=== PATIENT | male | born 1995 | race Caucasian/White ===

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

== ENCOUNTER 2022-12-01 12:48 | Inpatient (IN) ==
--- NOTE | 2022-12-01 13:50 | Emergency Department Note ---
Impression & Plan Asthma exacerbation, Flu-like symptoms, Effusion, pericardium, Pleural effusion ED Provider Note NAME: ELDA CARRILLO AGE: 27 SEX: M : 1995 ARRIVES VIA: Walk-In INFORMANT: Patient ED PROVIDER(S): Rd Weaver DO CHIEF COMPLAINT: shortness of breath HPI: Patient is a 27-year-old male who presents to the ER for cough, congestion, and shortness of breath. Does have a past medical history of asthma. Symptoms started last Wednesday. Have been gradually getting worse. Admits to fevers 102. Seen and evaluated by PCP who reviewed the chest x-ray and thought there was a infiltrate and sent him over here for a D-dimer as the patient was tachycardic and tachypneic. Patient denies any belly pain, nausea, vomiting, or diarrhea. No dysuria, urgency, or frequency. No other exacerbating or remitting factors. ADDITIONAL HISTORY OBTAINED: Per HPI Chronic Medical/Social Conditions Affecting Care: Per HPI PAST MEDICAL HISTORY:See Below PAST SURGICAL HISTORY:See Below FAMILY HISTORY:See Below SOCIAL HISTORY:See Below HOME MEDICATIONS:See Below ALLERGIES:See Below VITALS:See Below PHYSICAL EXAMINATION: GENERAL: Sitting up in bed, alert, disheveled, tachypneic EYE EXAM: normal conjunctiva. PERRL and EOM's grossly intact. OROPHARYNX: Dry mucous membranes NECK: supple, no nuchal rigidity, no adenopathy, non-tender LUNGS: Mild wheezing bilaterally. Normal chest wall mechanics HEART: Tachycardic, S1 normal and S2 normal ABDOMEN: abdomen soft, non-tender, normo-active bowel sounds, no masses, no rebound or guarding. UPPER EXTREMITIES: upper extremities are grossly normal. LOWER EXTREMITIES: No pitting edema. Calves are equal bilateral NEURO EXAM: Normal sensorium, cranial nerves II-XII grossly intact, normal speech, no gross weakness of arms, no gross weakness of legs. MEDICAL DECISION MAKING: Patient is a 27-year-old male who presents ER referred by PCP with a past medical history of asthma on antibiotics and steroids. IV was established blood work is obtained. Labs show no significant leukocytosis or anemia. INR unremarkable. BMP with mild hypokalemia 3.2. LFTs bilirubin was unremarkable. Troponin negative. Lipase negative. Viral panel negative. PCP did call in and I did speak with them. They noted that the patient had infiltrate on chest x- ray was tachycardic tachypneic and was coming in via private vehicle. After obtaining chest x-ray there is no infiltrate and patient was sent emergently to CAT scan for possible PE. CT did show pericardial effusion and pleural effus ions but no PEs. Patient was given neb treatments, 2 L of IV fluids as well as IV steroids. He was updated bedside. Heart rate trended down from the 150s to 140s but still remained persistently elevated. His respiratory rate was improved. He was admitted for further work-up. External Records Reviewed: Reviewed PCPs note with recent shortness of breath on steroids and antibiotics getting worse Consults/Care Managements Discussions: Per [facility] Triage Nursing notes reviewed. Limited review of prior medical records performed Vital Signs: reviewed and remarkable for tachycardic Differential diagnosis: Differential diagnoses includes but is not limited to pneumonia, bronchitis, COPD/Asthma exacerbation, pneumothorax, pulmonary embolism, congestive heart failure, acute coronary syndrome ER treatment provided: See below Diagnostics interpreted by me include EKG and cardiac monitoring as listed below: -Cardiac Monitoring: An order was placed for continuous cardiac monitoring. The monitor shows a rate of 145 with sinus rhythm. -ECG: Sinus tachycardia rate of 137 Normal axis No PVCs QTc 456 -Laboratory studies:Interpreted by me as stated above in MDM and shown below. Imaging studies: Xrays: As interpreted by me: Portable AP upright 1 view of the chest shows no focal infiltrate CTs show: CT angio chest as described above Procedures:none Critical Care: I have personally spent 31 minutes of critical care time in the direct management of this patient. This includes bedside care, interpretation of diagnostic studies, and testing, discussion with consultants, patient, and family members, and other required patient management activities. This 31 minutes is in excess of all separately billable procedures. Past Med/Surg History Medical History Asthma Surgical History S/P wisdom tooth extraction Family History Mother Colorectal cancer COPD (chronic obstructive pulmonary disease) Heart disease Father Diabetes Hypertension Denies family history of Ovarian cancer Prostate cancer Myocardial infarction Breast cancer Social History Smoking Status: Never smoker Second Hand Exposure: No; Do You Dip or Chew Tobacco: No; Hx Alcohol Use: No Hx Substance Use: No Preferred Language: Luxembourgish Communication Ability: Effective Visual Impairment: No Limitations Hearing Ability: Normal Lens Polisher Hand Required: No Beliefs That Will Affect Care: None marital status: Single Current Living Situation: Family current occupational status: employed current occupation: APPLICATION ARCHITECT MANAGER Feels Safe at Home: Yes Childhood Exposure to Second-Hand Smoke: Yes Diet: regular Dental Care, Regularly: Yes Physical Activity Frequency: Does not Exercise Seatbelt Use: always Sunscreen Use: Yes Do you think of yourself as: lesbian/dimas/homosexual Sexual Activity: has been sexually active within the last 12 months Gender Identity: Male Assistive Devices: Glasses Allergies Allergies Allergy/AdvReac Type Severity Reaction Status Date / Time pollen extracts Allergy Intermediate ITCHY Verified 12/01/22 15:12 EYES, SNEEZING, CONGESTION Home Meds Home Medications Medication Instructions Recorded Confirmed albuterol sulfate 90 mcg/actuation 2 puff inhalation Q4 PRN shortness 12/01/22 12/01/22 aerosol inhaler (Ventolin HFA) of breath or wheezing bupropion HCl 150 mg 24 hr tablet, 150 mg PO QAM 12/01/22 12/01/22 extended release fluticasone propionate 50 2 spray intranasal QAM 12/01/22 12/01/22 mcg/actuation nasal spray,suspension Previous Rx's Medication Instructions Recorded cetirizine 10 mg tablet 10 mg PO DAILY PRN allergy 08/19/21 symptoms #90 tabs amoxicillin 875 mg-potassium 1 tab PO BID #20 tabs 11/29/22 clavulanate 125 mg tablet Results & Data (ED) Vital Signs Vital Signs - 24 hr 12/01/22 13:28 12/01/22 13:43 12/01/22 13:47 Temperature 36.5 C Temperature Source Temporal Artery Scan Pulse Rate 150 H 147 H Pulse Rate [Apical] Pulse Rhythm [Apical] Pulse Strength [Apical] Respiratory Rate 20 Respiratory Effort / Characteristics Non-Labored Spontaneous Respiratory Depth Normal Respiratory Pattern Blood Pressure 150/93 H Blood Pressure [Left Arm] Blood Pressure Mean 112 Blood Pressure Mean [Left Arm] Blood Pressure Position [Left Arm] Pulse Oximetry 96 97 Oxygen Delivery Method Room Air Room Air Sepsis Recent Fever Within 48 Hours No Sepsis New/Unexplained Change in Mental Status No Sepsis Action Taken by Nursing No Action Required 12/01/22 13:37 12/01/22 13:50 12/01/22 14:19 Temperature Temperature Source Pulse Rate Pulse Rate [Apical] 145 H 141 H Pulse Rhythm [Apical] Regular Pulse Strength [Apical] Bounding Respiratory Rate 22 22 Respiratory Effort / Characteristics Non-Labored Spontaneous Non-Labored Spontaneous Respiratory Depth Normal Normal Respiratory Pattern Regular Blood Pressure Blood Pressure [Left Arm] 156/111 H 137/96 Blood Pressure Mean Blood Pressure Mean [Left Arm] 126 109 Blood Pressure Position [Left Arm] Semi-fowlers Pulse Oximetry 97 95 Oxygen Delivery Method Room Air Room Air Room Air Sepsis Recent Fever Within 48 Hours Sepsis New/Unexplained Change in Mental Status Sepsis Action Taken by Nursing 12/01/22 14:56 12/01/22 15:02 12/01/22 15:17 Temperature Temperature Source Pulse Rate Pulse Rate [Apical] 149 H 156 H Pulse Rhythm [Apical] Pulse Strength [Apical] Respiratory Rate 22 22 Respiratory Effort / Characteristics Non-Labored Spontaneous Non-Labored Spontaneous Respiratory Depth Normal Normal Respiratory Pattern Regular Blood Pressure Blood Pressure [Left Arm] 153/92 H 142/97 H Blood Pressure Mean Blood Pressure Mean [Left Arm] 112 112 Blood Pressure Position [Left Arm] Pulse Oximetry 98 96 Oxygen Delivery Method Nebulizer Room Air Sepsis Recent Fever Within 48 Hours Sepsis New/Unexplained Change in Mental Status Sepsis Action Taken by Nursing 12/01/22 15:43 12/01/22 15:52 12/01/22 16:00 Temperature 36.9 C Temperature Source Oral Pulse Rate Pulse Rate [Apical] 145 H 143 H 143 H Pulse Rhythm [Apical] Pulse Strength [Apical] Respiratory Rate 22 21 19 Respiratory Effort / Characteristics Non-Labored Respiratory Depth Normal Respiratory Pattern Blood Pressure Blood Pressure [Left Arm] 148/98 H 148/98 H 144/105 H Blood Pressure Mean Blood Pressure Mean [Left Arm] 114 114 118 Blood Pressure Position [Left Arm] Pulse Oximetry 97 98 97 Oxygen Delivery Method Room Air Room Air Room Air Sepsis Recent Fever Within 48 Hours Sepsis New/Unexplained Change in Mental Status Sepsis Action Taken by Nursing Laboratory Data 12/01/22 13:45 12/01/22 13:45 Lab Results 12/01/22 12/01/22 12/01/22 Range/Units 13:45 13:45 13:45 WBC 8.31 (4.8-10.8) K/ul RBC 5.24 (4.70-6.10) M/uL Hgb 14.6 (14.0-18.0) g/dl Hct 41.4 L (42.0-52.0) % MCV 79.0 L (80.0-100.0) fL MCH 27.9 (25.0-34.0) pg MCHC 35.3 (32.0-36.0) g/dL RDW Std Deviation 35.8 L (36.4-46.3) fL RDW Coeff of Mykel 12.6 (11.5-14.5) % Plt Count 196 (130-400) K/uL MPV 8.8 L (9.4-12.4) fL Immature Gran % (Auto) 0.5 % Neut % (Auto) 74.9 % Lymph % (Auto) 12.8 % Douglas % (Auto) 11.2 % Eos % (Auto) 0.2 % Baso % (Auto) 0.4 % Neut # (Auto) 6.23 (1.40-6.50) K/uL Lymph # (Auto) 1.06 L (1.20-3.40) K/uL Douglas # (Auto) 0.93 H (0.11-0.59) K/uL Eos # (Auto) 0.02 (0.00-0.50) K/uL Baso # (Auto) 0.03 (0.00-0.20) K/uL Immature Gran # (Auto) 0.04 (0.01-0.20) K/uL PT 11.4 (9.0-12.0) Seconds INR 1.0 (0.9-1.1) APTT 27.6 (21.0-31.0) Seconds PTT Ratio 1.0 Sodium 137 (136-145) mmol/L Potassium 3.2 L (3.5-5.1) mmol/L Chloride 103 (98-107) mmol/L Carbon Dioxide 24 (21-32) mmol/L Anion Gap 10 (3-11) BUN 12 (6-23) mg/dl Creatinine 0.89 (0.6-1.4) mg/dl Est Cr Clr Drug Dosing 143.4 ml/min Est GFR ( Amer) 137.7 ml/min Est GFR (Non-Af Amer) 118.8 ml/min BUN/Creatinine Ratio 13.5 (10-20) Glucose 106 H (70-99(Fasting)) mg/dl Calcium 8.9 (8.6-10.3) mg/dl Total Bilirubin 0.7 (0.2-1.0) mg/dl AST 11 L (13-39) U/L ALT 22 (7-52) U/L Alkaline Phosphatase 85 (34-104) U/L Troponin I High Sens 3.8 (0-20) pg/ml Total Protein 7.9 (6.0-8.3) gm/dl Albumin 4.4 (3.4-5.0) gm/dl Globulin 3.5 (2.5-4.0) gm/dl Albumin/Globulin Ratio 1.3 (0.9-2) Lipase 32 (11-82) U/L SARS-CoV-2 (PCR) (Negative) Influenza Type A (PCR) (Neg) Influenza Type B (PCR) (Neg) RSV (RT-PCR) (Neg) 12/01/22 Range/Units 13:54 WBC (4.8-10.8) K/ul RBC (4.70-6.10) M/uL Hgb (14.0-18.0) g/dl Hct (42.0-52.0) % MCV (80.0-100.0) fL MCH (25.0-34.0) pg MCHC (32.0-36.0) g/dL RDW Std Deviation (36.4-46.3) fL RDW Coeff of Mykel (11.5-14.5) % Plt Count (130-400) K/uL MPV (9.4-12.4) fL Immature Gran % (Auto) % Neut % (Auto) % Lymph % (Auto) % Douglas % (Auto) % Eos % (Auto) % Baso % (Auto) % Neut # (Auto) (1.40-6.50) K/uL Lymph # (Auto) (1.20-3.40) K/uL Douglas # (Auto) (0.11-0.59) K/uL Eos # (Auto) (0.00-0.50) K/uL Baso # (Auto) (0.00-0.20) K/uL Immature Gran # (Auto) (0.01-0.20) K/uL PT (9.0-12.0) Seconds INR (0.9-1.1) APTT (21.0-31.0) Seconds PTT Ratio Sodium (136-145) mmol/L Potassium (3.5-5.1) mmol/L Chloride (98-107) mmol/L Carbon Dioxide (21-32) mmol/L Anion Gap (3-11) BUN (6-23) mg/dl Creatinine (0.6-1.4) mg/dl Est Cr Clr Drug Dosing ml/min Est GFR ( Amer) ml/min Est GFR (Non-Af Amer) ml/min BUN/Creatinine Ratio (10-20) Glucose (70-99(Fasting)) mg/dl Calcium (8.6-10.3) mg/dl Total Bilirubin (0.2-1.0) mg/dl AST (13-39) U/L ALT (7-52) U/L Alkaline Phosphatase (34-104) U/L Troponin I High Sens (0-20) pg/ml Total Protein (6.0-8.3) gm/dl Albumin (3.4-5.0) gm/dl Globulin (2.5-4.0) gm/dl Albumin/Globulin Ratio (0.9-2) Lipase (11-82) U/L SARS-CoV-2 (PCR) NEGATIVE (Negative) Influenza Type A (PCR) Negative (Neg) Influenza Type B (PCR) Negative (Neg) RSV (RT-PCR) Negative (Neg) Administered Medications Sodium Chloride (Nss) 2,000 mls @ 999 mls/hr IV .Q2H1M ONE Stop: 12/01/22 17:11 Last Admin: 12/01/22 15:17 Dose: 999 mls/hr Documented By: ASW Discontinued Medications Albuterol (Albuterol 0.083% Nebu Soln 3 Ml Vial) 7.5 mg NEB NOW STA; Protocol Stop: 12/01/22 14:33 Last Admin: 12/01/22 14:37 Dose: 7.5 mg Documented By: MES Ioversol (Optiray 320 500ml) 81 ml IV ONCE ONE Stop: 12/01/22 14:20 Last Admin: 12/01/22 14:20 Dose: 81 ml Documented By: KARLOS Methylprednisolone (Methylprednisolone 40 Mg/Ml Vial) 40 mg IV NOW STA Stop: 12/01/22 15:12 Last Admin: 12/01/22 15:22 Dose: 40 mg Documented By: ASW Imaging Data Radiologist's Impression: Chest X-Ray 12/01/22 13:32 XR chest 1V portable CLINICAL HISTORY: Chest pain, nonspecific COMPARISON STUDY: Chest radiograph November 29, 2022. FINDINGS: Lung volumes are normal. Lungs are clear. There is no pneumothorax or pleural effusion. Cardiac size is normal. Mediastinal contours are normal. There is no evidence for pulmonary edema. IMPRESSION: No acute cardiopulmonary findings. ACT 112: Negative or not required by law. Electronically signed by: Renato Marinelli M.D. 12/01/2022 2:26 PM Chest CTA 12/01/22 13:57 CT angio chest PE protocol HISTORY: 27 years-old Male with PE. Acute shortness of breath with chest pain TECHNIQUE: Multiple CTA images of the chest were obtained after the intravenous administration of 81 ml Optiray. Coronal and sagittal MIPS were obtained from the axial data set and were submitted for review. All measurements were obtained according to NASCET criteria. A dose lowering technique was utilized adhering to the principles of ALARA. COMPARISON: Chest radiograph of same day FINDINGS: CTA: Heart is normal in size. Trace pericardial effusion. No thoracic aortic aneurysm. Nondiagnostic evaluation of the pulmonary artery secondary to contrast bolus timing. CT CHEST: Unremarkable thyroid. No lymphadenopathy. Trace pleural effusions. No pneumothorax, pleural effusion or pulmonary edema. Minimal subsegmental bibasilar atelectasis. Central airways are patent. The spleen is enlarged, 15 cm in length. No acute process of the imaged upper abdomen. Unremarkable soft tissues. No acute fracture. IMPRESSION: 1. Nondiagnostic evaluation of the pulmonary arterial tree secondary to contrast bolus timing. 2. Trace pericardial and pleural effusions. 3. Splenomegaly. 4. The study is otherwise unremarkable. ACT 112: Negative or not required by law. The above report was generated using voice recognition software. It may contain grammatical, syntax or spelling errors. Electronically signed by: Atul Aguero M.D. 12/01/2022 2:49 PM Discharge Plan Visit Data Chief Complaint: Shortness of Breath/Dyspnea Stated Complaint: DOC REF,SOB, ED Provider: Rd Weaver Discharge Problem: Asthma exacerbation, Flu-like symptoms, Effusion, pericardium, Pleural effusion Forms Stand Alone Forms: My [facility] [email or web address] Prescriptions Prescriptions: No Action cetirizine 10 mg tablet 10 mg PO DAILY PRN (Reason: allergy symptoms) Qty: 90 3RF fluticasone propionate 50 mcg/actuation spray,suspension 2 spray INTRANASAL QAM bupropion HCl 150 mg tablet extended release 24 hr 150 mg PO QAM albuterol sulfate [Ventolin HFA] 90 mcg/actuation HFA aerosol inhaler 2 puff inhalation Q4 PRN (Reason: shortness of breath or wheezing) amoxicillin-pot clavulanate 875-125 mg tablet 1 tab PO BID Qty: 20 0RF Referrals Referrals: Salome Pickard PA-C [Primary Care Provider] -
[2022-12-01 14:02] LABS: Hematocrit (blood only) 41.4 % (42.0-52.0); Hemoglobin 14.6 g/dl (14.0-18.0); Mean Corpuscular Hemoglobin 27.9 pg (25.0-34.0); Mean Corpuscular Hgb Conc 35.3 g/dL (32.0-36.0); Mean Platelet Volume 8.8 fL (9.4-12.4); Platelet Count 196 K/uL (130-400); RDW Coefficient of Variation 12.6 % (11.5-14.5); RDW Standard Deviation 35.8 fL (36.4-46.3); Red Blood Count 5.24 M/uL (4.70-6.10); White Blood Count 8.31 K/ul (4.8-10.8)
[2022-12-01 14:19] LABS: Basophils # (auto) 0.03 K/uL (0.00-0.20); Basophils % (auto) 0.4 %; Eosinophils # (auto) 0.02 K/uL (0.00-0.50); Eosinophils % (auto) 0.2 %; Immature Granulocytes # (auto) 0.04 K/uL (0.01-0.20); Immature Granulocytes % (auto) 0.5 %; Lymphocytes # (auto) 1.06 K/uL (1.20-3.40); Lymphocytes % (auto) 12.8 %; Monocytes # (auto) 0.93 K/uL (0.11-0.59); Monocytes % (auto) 11.2 %; Neutrophils # (auto) 6.23 K/uL (1.40-6.50); Neutrophils % (auto) 74.9 %
[2022-12-01] MEDS ORDERED: OPTIRAY 320 500ml IV ONE (14:19)
--- NOTE | 2022-12-01 14:27 | Electrocardiogram Report ---
Test Reason : Blood Pressure : / mmHG Vent. Rate : 137 BPM Atrial Rate : 137 BPM P-R Int : 130 ms QRS Dur : 100 ms QT Int : 302 ms P-R-T Axes : 041 039 032 degrees QTc Int : 456 ms Sinus tachycardia Incomplete right bundle branch block Borderline ECG When compared with ECG of 29-NOV-2022 17:44, Incomplete right bundle branch block is now Present Confirmed by David Jain ([id number]) on 12/01/2022 2:27:31 PM Referred By: Confirmed By:David Jain
--- NOTE | 2022-12-01 14:28 | XRay Report ---
XR chest 1V portable CLINICAL HISTORY: Chest pain, nonspecific COMPARISON STUDY: Chest radiograph November 29, 2022. FINDINGS: Lung volumes are normal. Lungs are clear. There is no pneumothorax or pleural effusion. Car diac size is normal. Mediastinal contours are normal. There is no evidence for pulmonary edema. IMPRESSION: No acute cardiopulmonary findings. ACT 112: Negative or not required by law. Electronically signed by: Renato Marinelli M.D. 12/01/2022 2:26 PM
[2022-12-01 14:32] LABS: Partial Thromboplastin Time 27.6 Seconds (21.0-31.0); Prothrombin Time 11.4 Seconds (9.0-12.0)
[2022-12-01] MEDS ORDERED: ALBUTEROL 0.083% NEBU SOLN 3 ML VIAL NEB STA (14:32)
[2022-12-01 14:43] LABS: Influenza A virus by PCR Negative (Neg); Influenza B virus by PCR Negative (Neg); RSV by PCR Negative (Neg); SARS CoV2 RNA(COVID-19) Ceph NEGATIVE (Negative)
--- NOTE | 2022-12-01 14:51 | CT Scan Report ---
CT angio chest PE protocol HISTORY: 27 years-old Male with PE. Acute shortness of breath with chest pain TECHNIQUE: Multiple CTA images of the chest were obtained after the intravenous administration of 81 ml Optiray. Coronal and sagittal MIPS were obtained from the axial data set and were submitted for r eview. All measurements were obtained according to NASCET criteria. A dose lowering technique was ut ilized adhering to the principles of ALARA. COMPARISON: Chest radiograph of same day FINDINGS: CTA: Heart is normal in size. Trace pericardial effusion. No thoracic aortic aneurysm. Nondiagnostic evalu ation of the pulmonary artery secondary to contrast bolus timing. CT CHEST: Unremarkable thyroid. No lymphadenopathy. Trace pleural effusions. No pneumothorax, pleural effusion or pulmonary edema. Minimal subsegmental bibasilar atelectasis. Central airways are patent. The spleen is enlarged, 15 cm in length. No acute process of the imaged upper abdomen. Unremarkable s oft tissues. No acute fracture. IMPRESSION: 1. Nondiagnostic evaluation of the pulmonary arterial tree secondary to contrast bolus timing. 2. Trace pericardial and pleural effusions. 3. Splenomegaly. 4. The study is otherwise unremarkable. ACT 112: Negative or not required by law. The above report was generated using voice recognition software. It may contain grammatical, syntax o r spelling errors. Electronically signed by: Atul Aguero M.D. 12/01/2022 2:49 PM
[2022-12-01] MEDS ORDERED: SODIUM CHLORIDE 0.9% 2,000 ML IV ONE (15:11)
[2022-12-01 15:38] LABS: Albumin Globulin Ratio 1.3 (0.9-2); Albumin Level 4.4 gm/dl (3.4-5.0); BUN Creatinine Ratio 13.5 (10-20); Bilirubin,Total 0.7 mg/dl (0.2-1.0); Calcium 8.9 mg/dl (8.6-10.3); Creatinine Clr Calc Pharmacy 143.4 ml/min; Est GFR (African American) 137.7 ml/min; Est GFR (Non-African American) 118.8 ml/min; Globulin 3.5 gm/dl (2.5-4.0); Potassium 3.2 mmol/L (3.5-5.1); Total Protein 7.9 gm/dl (6.0-8.3); Troponin I High Sensitivity 3.8 pg/ml (0-20)
--- NOTE | 2022-12-01 15:52 | History & Physical Report ---
Date of Service December 01, 2022 Assessment & Plan (1) Asthma exacerbation: (2) Acute pharyngitis: (3) Dehydration: Plan: Patient is a 27-year-old male with PMH asthma, depression presented to ER with complaint of sore throat, URI symptoms and shortness of breath x 1 week Recent negative outpatient group A strep test, negative Monospot, negative anaplasmosis, negative Lyme. Negative GC/CT, Negative HIV, Negative Hepatitis C antibody In ER afebrile, initially tachycardic in the 150s, initially tachypneic. No hypoxia. No leukocytosis. Negative influenza, RSV, SARS-CoV-2 PCR today Negative respiratory bio fire panel on 11/29/2022 In ER received neb treatment, IV Solu-Medrol, 2 L NSS Improvement after neb treatment with decreased tachypnea and decreased wheezing CTA chest: Nondiagnostic evaluation of the pulmonary arterial tree secondary to contrast bolus timing. Trace pericardial and pleural effusions. Splenomegaly. Patient not hypoxic however is cardiac and tachypneic. Will add D-dimer. If elevated consider repeat CTA tomorrow after IV hydration to R/O PE Likely viral URI causing asthma exacerbation. possible viral pharyngitis. Repeat [place] pending. No signs of tonsillar abscess at this time. Continue to monitor. Will start antibiotics. Sinus tachycardia possible secondary to dehydration ESR, CRP pending Xopenex Atrovent nebs scheduled Solu-Medrol IV Zithromax CBC, BMP in a.m. (4) Effusion, pericardium: Plan: CTA chest: Trace pericardial and pleural effusions HS troponin negative ESR, CRP pending Echo pending EKG in AM (5) Hypokalemia: Plan: K: 3.2 Magnesium level pending Replace and monitor (6) Depression: Plan: Continue bupropion DVT Prophylaxis Lovenox SQ Full Code as per discussion with pt Follows with Salome Pickard PA-C for routine care Pt was seen and care coordinated with Dr Parsons. See addendum History of Present Illness Chief Complaint: Shortness of breath Primary Care Provider: Salome Pickard PA-C Patient is a 27-year-old male with PMH asthma, depression presented to ER with complaint of sore throat and shortness of breath. History obtained from patient, and outpatient chart review. Patient states last week started with sore throat. Was seen at urgent care on 11/24/22 and had negative group A strep, Negative chlamydia, negative gonorrhea. Sore throat continued as well as developed cough, shortness of breath, wheezing, chest tightness, body aches, rhinorrhea and was seen again in urgent care on 11/26/2022 with negative rapid Monospot, negative mononucleosis antibody, negative RPR and Negative Anaplasma PCR, Negative Lyme antibody, Negative HIV antigen and antibody, Negative hepatitis C antibody. He was started on prednisone x 5 days and viscous lidocaine mouth solution. Patient states symptoms continued and was seen at [facility] ER on 11/29/2022 and had Negative CXR, No leukocytosis, Negative respiratory panel including negative COVID-19, RSV, influenza. He was started on Augmentin. Patient states has had decreased appetite and decreased oral intake. Also complains of generalized malaise. Reports was febrile over the weekend with temperatures up to 102F. No fever for the past couple of days. He feels he has had increased shortness of breath and wheezing and chest tightness. He has been using albuterol inhaler and nebs at home 4 times a day with limited relief. Today had increased shortness of breath and was seen in outpatient clinic and referred to ER for further evaluation. Reports history sexually active with men. Reports history of unprotected intercourse in the last few months. STI testing as above was negative. Denies N/V/D/C, ALBRIGHT, dizziness, syncope, vision changes, neck pain, palpitations, hemoptysis, choking, otalgia, abdominal pain, paresthesias, extremity weakness, extremity edema, rashes, urinary symptoms. Denies ill contacts. Denies recent travel. Denies history of mono. Allergies Allergy/AdvReac Type Severity Reaction Status Date / Time pollen extracts Allergy Intermediate ITCHY Verified 12/01/22 15:12 EYES, SNEEZING, CONGESTION Home Medications Medication Instructions Recorded Confirmed Type cetirizine 10 mg tablet 10 mg PO DAILY PRN allergy 08/19/21 12/01/22 Rx symptoms #90 tabs amoxicillin 875 mg-potassium 1 tab PO BID #20 tabs 11/29/22 12/01/22 Rx clavulanate 125 mg tablet albuterol sulfate 90 mcg/actuation 2 puff inhalation Q4 PRN shortness 12/01/22 12/01/22 History aerosol inhaler (Ventolin HFA) of breath or wheezing bupropion HCl 150 mg 24 hr tablet, 150 mg PO QAM 12/01/22 12/01/22 History extended release fluticasone propionate 50 2 spray intranasal QAM 12/01/22 12/01/22 History mcg/actuation nasal spray,suspension Past Med/Surg History Medical History Asthma Depression Surgical History S/P wisdom tooth extraction Family History Mother Colorectal cancer COPD (chronic obstructive pulmonary disease) Heart disease Father Diabetes Hypertension Denies family history of Ovarian cancer Prostate cancer Myocardial infarction Breast cancer Social History Smoking Status: Never smoker Second Hand Exposure: No; Do You Dip or Chew Tobacco: No; Hx Alcohol Use: No Hx Substance Use: No Preferred Language: Polish Communication Ability: Effective Visual Impairment: No Limitations Hearing Ability: Normal Study Abroad Advisor Required: No Beliefs That Will Affect Care: None marital status: Single Current Living Situation: Family current occupational status: employed 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 Feels Safe at Home: Yes Childhood Exposure to Second-Hand Smoke: Yes Diet: regular Dental Care, Regularly: Yes Physical Activity Frequency: Does not Exercise Seatbelt Use: always Sunscreen Use: Yes Do you think of yourself as: lesbian/dimas/homosexual Sexual Activity: has been sexually active within the last 12 months Gender Identity: Male Assistive Devices: Glasses Review of Systems Review of Systems: All systems reviewed & are unremarkable except as noted in HPI & below Physical Exam Physical Exam: General: no distress, WDWN Head: normocephalic, atraumatic Eyes: conjunctiva non-injected, anicteric ENT: normal inspection external ears, nose, mucous membranes dry, +tonsil erythema and edema with right tonsil slightly larger than left, +exudate bilateral tonsils. No soft palate edema, no uvula deviation Neck: supple, trachea midline, +tender anterior and posterior lymphadenopathy Lungs: clear, no respiratory distress, RR: 20, no wheezing/rhonchi/rales at this time (just finished neb treatment) CV: +tachycardia, rate 140, regular rhythm, no murmur, no pretibial edema Abd: normal BS, soft, non-tender Ext: no cyanosis, no calf tenderness Neuro: A&O x 3, no focal deficits noted, normal affect Skin: warm, dry Results & Data Results & Data Vital Signs (Past 12 Hours) Vital Signs Temp Pulse Pulse Resp BP BP Pulse Ox 12/01/22 15:17 156 H 22 96 12/01/22 15:02 142/97 H 12/01/22 14:56 149 H 22 153/92 H 98 12/01/22 14:19 141 H 22 137/96 95 12/01/22 13:50 12/01/22 13:37 145 H 22 156/111 H 97 12/01/22 13:47 97 12/01/22 13:43 147 H 12/01/22 13:28 36.5 C 150 H 20 150/93 H 96 O2 Del Method 12/01/22 15:17 Room Air 12/01/22 15:02 12/01/22 14:56 Nebulizer 12/01/22 14:19 Room Air 12/01/22 13:50 Room Air 12/01/22 13:37 Room Air 12/01/22 13:47 Room Air 12/01/22 13:43 12/01/22 13:28 Room Air Laboratory Results Short CBC 12/01/22 Range/Units 13:45 WBC 8.31 (4.8-10.8) K/ul Hgb 14.6 (14.0-18.0) g/dl Hct 41.4 L (42.0-52.0) % Plt Count 196 (130-400) K/uL BMP 12/01/22 13:45 Sodium 137 Potassium 3.2 L Chloride 103 Carbon Dioxide 24 BUN 12 Creatinine 0.89 Glucose 106 H Calcium 8.9 Liver Function 12/01/22 Range/Units 13:45 Total Bilirubin 0.7 (0.2-1.0) mg/dl AST 11 L (13-39) U/L ALT 22 (7-52) U/L Alkaline Phosphatase 85 (34-104) U/L Albumin 4.4 (3.4-5.0) gm/dl Diagnostic Findings Chest X-Ray 12/01/22 13:32 XR chest 1V portable CLINICAL HISTORY: Chest pain, nonspecific COMPARISON STUDY: Chest radiograph November 29, 2022. FINDINGS: Lung volumes are normal. Lungs are clear. There is no pneumothorax or pleural effusion. Cardiac size is normal. Mediastinal contours are normal. There is no evidence for pulmonary edema. IMPRESSION: No acute cardiopulmonary findings. ACT 112: Negative or not required by law. Electronically signed by: Renato Marinelli M.D. 12/01/2022 2:26 PM Chest CTA 12/01/22 13:57 CT angio chest PE protocol HISTORY: 27 years-old Male with PE. Acute shortness of breath with chest pain TECHNIQUE: Multiple CTA images of the chest were obtained after the intravenous administration of 81 ml Optiray. Coronal and sagittal MIPS were obtained from the axial data set and were submitted for review. All measurements were obtained according to NASCET criteria. A dose lowering technique was utilized adhering to the principles of ALARA. COMPARISON: Chest radiograph of same day FINDINGS: CTA: Heart is normal in size. Trace pericardial effusion. No thoracic aortic aneurysm. Nondiagnostic evaluation of the pulmonary artery secondary to contrast bolus timing. CT CHEST: Unremarkable thyroid. No lymphadenopathy. Trace pleural effusions. No pneumothorax, pleural effusion or pulmonary edema. Minimal subsegmental bibasilar atelectasis. Central airways are patent. The spleen is enlarged, 15 cm in length. No acute process of the imaged upper abdomen. Unremarkable soft tissues. No acute fracture. IMPRESSION: 1. Nondiagnostic evaluation of the pulmonary arterial tree secondary to contrast bolus timing. 2. Trace pericardial and pleural effusions. 3. Splenomegaly. 4. The study is otherwise unremarkable. ACT 112: Negative or not required by law. The above report was generated using voice recognition software. It may contain grammatical, syntax or spelling errors. Electronically signed by: Atul Aguero M.D. 12/01/2022 2:49 PM ECG Additional Comments: Sinus tachycardia, rate 137, incomplete right bundle branch block per my interpretation Supervising Physician Co-Signing Physician Notes Attending addendum: The patient was seen and examined in emergency room He has controlled asthma and has been complaining of cough with wheezing and shortness of breath for the last 7 days He also complains to have some sore throat and problem with swallowing He has had a few visits to the doctors for the same problem but today he was wheezing and more shortness of breath with some feverish feeling He was noted to be tachycardic, tachypneic and wheezy in the emergency room When examining Moderate shortness of breath at rest Flushed facies Examination of the neck showed cervical adenopathy and tonsillar enlargement with tenderness Noted to be tachycardic and tachypneic and afebrile Chest-decreased breath sounds bilaterally with wheezing Heart-S1-S2, regular with tachycardia Abdomen-benign Extremities-negative His admission labs, EKG and imaging studies reviewed Exacerbation of asthma likely due to viral infection, has been going on for 7 days with feverish feeling will cover for superimposed bacterial infection CT of the chest is equivocal for pulmonary embolism and may need to repeat the test tomorrow or day after. Will check D-dimer May have mono Started with intravenous Solu-Medrol, nebulized bronchodilator, will add antibiotic Agree with assessment and plan as outlined above by QING Jain Dr (2) Acute pharyngitis Pharyngitis/tonsillitis etiology: unspecified etiology Qualified Code(s): J02.9 - Acute pharyngitis, unspecified
[2022-12-01] MEDS ORDERED: POTASSIUM CHLORIDE CRTAB 20 MEQ TABCR PO STA (16:29)
[2022-12-01 16:54] LABS: C Reactive Protein 7.35 mg/dl (0-0.5)
[2022-12-01 17:11] LABS: D Dimer 710 ug/L FEU (0-500)
[2022-12-01 17:25] LABS: Amphetamines+Metham, Urine Neg (Neg); Barbiturates, Urine Neg (Neg); Benzodiazepine, Urine Neg (Neg); Cocaine, Urine Neg (Neg); MDMA (Ecstacy), Urine Neg (Neg); Methadone, Urine Neg (Neg); Opiate, Urine Neg (Neg); Phencyclidine, Urine Neg (Neg)
[2022-12-01] MEDS ORDERED: PROMETHAZINE HCL 12.5 MG in SODIUM CHLORIDE 0.9% 50 ML IV PRN (18:40)
[2022-12-01] MEDS ORDERED: SODIUM CHLORIDE 0.9% 1,000 ML IV SCH (18:40)
[2022-12-01] MEDS ORDERED: POLYETHYLENE (MIRALAX) 17 GM PACK PO PRN (18:40)
[2022-12-01] MEDS ORDERED: IPRATROPIUM BROMIDE NEB SOLN 0.02% 2.5 ML VIAL INH SCH (18:40)
[2022-12-01] MEDS ORDERED: AZITHROMYCIN 500 MG in DEXTROSE 5% 250 ML IV STA (18:49)
[2022-12-01] MEDS ORDERED: XOPENEX/ATROVENT 1.25mg/0.5MG NEB COMBO NEB SCH (19:00)
[2022-12-01 19:09] LABS: Magnesium 1.9 mg/dl (1.7-2.4)
[2022-12-01] MEDS: ENOXAPARIN INJ 40 MG/0.4 ML SYR SQ SCH (19:52)
[2022-12-01] MEDS: methylPREDNISolone 40 MG in SYRINGE 0 ML IV SCH (19:53)
[2022-12-01] MEDS: buPROPion XL 150 MG TABCR PO SCH (20:28)
[2022-12-01] MEDS ORDERED: POTASSIUM CHLORIDE CRTAB 20 MEQ TABCR PO ONE (21:00)
[2022-12-01] MEDS: IPRATROPIUM BROMIDE NEB SOLN 0.02% 2.5 ML VIAL INH SCH (21:12)
[2022-12-01] MEDS: LEVALBUTEROL 1.25 MG/3 ML NEB NEB SCH (21:13)
[2022-12-02] MEDS: LEVALBUTEROL 1.25 MG/3 ML NEB NEB SCH ×2 (00:06→08:07)
[2022-12-02] MEDS: IPRATROPIUM BROMIDE NEB SOLN 0.02% 2.5 ML VIAL INH SCH ×2 (00:06→08:07)
[2022-12-02 05:53] LABS: Hematocrit (blood only) 40.3 % (42.0-52.0); Hemoglobin 14.1 g/dl (14.0-18.0); Mean Corpuscular Hemoglobin 27.7 pg (25.0-34.0); Mean Corpuscular Volume 79.2 fL (80.0-100.0); Mean Platelet Volume 8.7 fL (9.4-12.4); Platelet Count 227 K/uL (130-400); RDW Coefficient of Variation 12.8 % (11.5-14.5); RDW Standard Deviation 36.6 fL (36.4-46.3); Red Blood Count 5.09 M/uL (4.70-6.10); White Blood Count 5.81 K/ul (4.8-10.8)
[2022-12-02 06:06] LABS: Anion Gap 8 (3-11); Blood Urea Nitrogen 7 mg/dl (6-23); Calcium 9.1 mg/dl (8.6-10.3); Carbon Dioxide 23 mmol/L (21-32); Chloride 106 mmol/L (98-107); Creatinine Clr Calc Pharmacy 185.9 ml/min; Est GFR (African American) > 150.0 ml/min; Est GFR (Non-African American) 131.2 ml/min; Glucose 140 mg/dl (70-99(Fasting)); Potassium 4.1 mmol/L (3.5-5.1); Sodium 137 mmol/L (136-145)
[2022-12-02 06:17] LABS: Basophils # (auto) 0.02 K/uL (0.00-0.20); Basophils % (auto) 0.3 %; Immature Granulocytes # (auto) 0.06 K/uL (0.01-0.20); Lymphocytes # (auto) 1.19 K/uL (1.20-3.40); Lymphocytes % (auto) 20.5 %; Monocytes % (auto) 6.9 %; Neutrophils # (auto) 4.14 K/uL (1.40-6.50); Neutrophils % (auto) 71.3 %; RBC Morphology Unremarkable
[2022-12-02] MEDS ORDERED: OPTIRAY 320 500ml IV ONE (08:50)
[2022-12-02] MEDS ORDERED: buPROPion XL 150 MG TABCR PO SCH (09:00)
[2022-12-02] MEDS: FLUTICASONE PROPIONATE NA SPR 16 GM BTL NAE SCH (09:09)
[2022-12-02] MEDS: methylPREDNISolone 40 MG in SYRINGE 0 ML IV SCH ×3 (09:10→20:02)
--- NOTE | 2022-12-02 09:44 | CT Scan Report ---
CT ANGIOGRAPHY OF THE CHEST, PULMONARY EMBOLUS PROTOCOL CLINICAL HISTORY: Shortness of breath. Chest pain. COMPARISON STUDY: Chest CT and chest radiograph December 01, 2022. TECHNIQUE: Following IV administration of 107 mL of Optiray, helical axial images of the chest were o btained utilizing the pulmonary embolus protocol. Maximal intensity projections and sagittal and cor onal reformats were viewed on an independent 3D workstation. IV contrast was administered without co mplication. Automated exposure control was utilized for the study. A dose lowering technique was ut ilized adhering to the principles of ALARA. FINDINGS: No pulmonary emboli are identified. There is no thoracic aortic dissection. Size of the he art is normal. There is no pericardial effusion. There is a trace right pleural effusion. No pneumoth orax is present. Central airways are patent. There are mild groundglass opacities within the lungs. T here may be few centrilobular nodules within the lungs. No consolidation is present. There is mild sp lenomegaly. IMPRESSION: 1. No pulmonary emboli identified. 2. No consolidation to suggest pneumonia. Subtle groundglass opacities and possible tiny centrilobula r nodules within the lungs. The findings favor atelectasis although bronchiolitis could appear simila r. 3. Trace right pleural effusion. 4. Mild splenomegaly. ACT 112: Negative or not required by law. Electronically signed by: Renato Marinelli M.D. 12/02/2022 9:42 AM
[2022-12-02] MEDS: ACETAMINOPHEN 325 MG TAB PO PRN (13:22)
--- NOTE | 2022-12-02 14:00 | Discharge Summary ---
Date of Service December 07, 2022 Admission HPI Per Admitting Provider Patient is a 27-year-old male with PMH asthma, depression presented to ER with complaint of sore throat and shortness of breath. History obtained from patient, and outpatient chart review. Patient states last week started with sore throat. Was seen at urgent care on 11/24/22 and had negative group A strep, Negative chlamydia, negative gonorrhea. Sore throat continued as well as developed cough, shortness of breath, wheezing, chest tightness, body aches, rhinorrhea and was seen again in urgent care on 11/26/2022 with negative rapid Monospot, negative mononucleosis antibody, negative RPR and Negative Anaplasma PCR, Negative Lyme antibody, Negative HIV antigen and antibody, Negative hepatitis C antibody. He was started on prednisone x 5 days and viscous lidocaine mouth solution. Patient states symptoms continued and was seen at [facility] ER on 11/29/2022 and had Negative CXR, No leukocytosis, Negative respiratory panel including negative COVID-19, RSV, influenza. He was started on Augmentin. Patient states has had decreased appetite and decreased oral intake. Also complains of generalized malaise. Reports was febrile over the weekend with temperatures up to 102F. No fever for the past couple of days. He feels he has had increased shortness of breath and wheezing and chest tightness. He has been using albuterol inhaler and nebs at home 4 times a day with limited relief. Today had increased shortness of breath and was seen in outpatient clinic and referred to ER for further evaluation. Reports history sexually active with men. Reports history of unprotected intercourse in the last few months. STI testing as above was negative. Denies N/V/D/C, ALBRIGHT, dizziness, syncope, vision changes, neck pain, palpitations, hemoptysis, choking, otalgia, abdominal pain, paresthesias, extremity weakness, extremity edema, rashes, urinary symptoms. Denies ill contacts. Denies recent travel. Denies history of mono. Admission Exam Per Admitting Provider Physical Exam: General: no distress, WDWN Head: normocephalic, atraumatic Eyes: conjunctiva non-injected, anicteric ENT: normal inspection external ears, nose, mucous membranes dry, +tonsil erythema and edema with right tonsil slightly larger than left, +exudate bilateral tonsils. No soft palate edema, no uvula deviation Neck: supple, trachea midline, +tender anterior and posterior lymphadenopathy Lungs: clear, no respiratory distress, RR: 20, no wheezing/rhonchi/rales at this time (just finished neb treatment) CV: +tachycardia, rate 140, regular rhythm, no murmur, no pretibial edema Abd: normal BS, soft, non-tender Ext: no cyanosis, no calf tenderness Neuro: A&O x 3, no focal deficits noted, normal affect Skin: warm, dry Principal Diagnosis Asthma exacerbation, sore throat, Neftali-Velasquez virus infection Discharge Exam Sitting on the bed without any acute distress but anxious Constitutional + ill appearing and average body habitus Eyes PERRL, conjunctivae normal, anicteric sclerae ENMT external ear and nose normal, oropharynx normal Neck trachea midline, no thyromegaly trachea midline and + neck tender (Bilaterally lower neck with cervical adenopathy) Respiratory no respiratory distress Auscultation: lungs clear to auscultation bilaterally and + diminished lung sounds; no crackles and no wheezes (Minimal wheezing at the bases) Cardiovascular Rate/Rhythm: regular rate and regular rhythm; not tachycardic Heart Sounds: normal S1 and normal S2; no murmur Extremities: no edema Gastrointestinal (Abdomen) Inspection/Auscultation: normal bowel sounds; abdomen not distended Percussion/Palpation: abdomen soft; abdomen nontender Neurologic normal touch/pain/proprioception and moves all extremities; no focal motor deficits Psychiatric A+Ox3, euthymic affect Lymphatic no cervical or axillary lymphadenopathy Discharge Data Allergies Allergy/AdvReac Type Severity Reaction Status Date / Time pollen extracts Allergy Intermediate ITCHY Verified 12/01/22 15:12 EYES, SNEEZING, CONGESTION Consultations 12/01/22 15:26 ED Decision to Admit Stat Ordered Studies 12/01/22 13:57 CT angio chest PE protocol Stat 12/02/22 09:00 CT angio chest PE protocol Routine Hospital Course (1) Asthma exacerbation: Asthma exacerbation likely viral and could have secondary bacterial infection Patient is a 27-year-old male with PMH asthma, depression presented to ER with complaint of sore throat, URI symptoms and shortness of breath x 1 week Recent negative outpatient group A strep test, negative Monospot, negative anaplasmosis, negative Lyme. Negative GC/CT, Negative HIV, Negative Hepatitis C antibody In ER afebrile, initially tachycardic in the 150s, initially tachypneic. No hypoxia. No leukocytosis. Negative influenza, RSV, SARS-CoV-2 PCR today Negative respiratory bio fire panel on 11/29/2022 In ER received neb treatment, IV Solu-Medrol, 2 L NSS Improvement after neb treatment with decreased tachypnea and decreased wheezing CTA chest: Nondiagnostic evaluation of the pulmonary arterial tree secondary to contrast bolus timing. Trace pericardial and pleural effusions. Splenomegaly. Patient not hypoxic however is cardiac and tachypneic. Will add D-dimer. D-dimer was elevated to more than 700 and a repeat CTA has been negative for any pulmonary embolism He has been feeling much better today with minimal or no wheezing We will continue current management and likely discharge tomorrow Has been having tachycardia Advised to drink more fluid We will use less of nebulized bronchodilator, use more of inhalers Noted to have Neftali-Velasquez virus infection and having neck pain and dysphagia Remained tachycardic early this morning without any wheezing and/or shortness of breath Atrovent has been discontinued Clinically much better and the repeat chest x-ray did not show any pneumonia He will be discharged home tomorrow on albuterol as needed and Flovent regularly. He will finish the course of steroid Clinically much better and he will be discharged home this afternoon He will continue with his medications as advised Has had more headache last night Fever and tachycardia Likely secondary to viral infection CT scan of the head remained unremarkable We will try more intravenous fluid and observe him overnight Still has minimal headache which is controlled with ibuprofen taken as needed No more headache and neck pain is better-headache is resolved Possible bacterial superinfection Likely viral URI causing asthma exacerbation. possible viral pharyngitis. Repeat [place] -negative. No signs of tonsillar abscess at this time. Continue to monitor. Will start antibiotics. Sinus tachycardia possible secondary to dehydration Has been started on azithromycin ESR-39 and C-reactive protein more than 7 No fever and no chills-CXR is negative Does not need any more antibiotic (2) Acute pharyngitis: Likely viral Azithromycin for possible bacterial super infection Has been feeling better Still complains to have some throat pain Secondary to Neftali-Velasquez virus infection Denies any problem with swallowing (3) Dehydration: Advised to drink more fluids (4) Effusion, pericardium: CTA chest: Trace pericardial and pleural effusions HS troponin negative Echo did not show any significant pleural effusions and EF is normal No cardiac symptoms (5) Hypokalemia: K: 3.2 Magnesium level pending Replace and monitor-has been normalized (6) Depression: Continue bupropion DVT Prophylaxis Lovenox SQ Full Code as per discussion with pt Follows with Salome Pickard PA-C for routine care Discharged home this afternoon Total Time Total Time Spent Total Time Spent (In Minutes): 35 minutes Discharge Plan Discharge Items Patient Disposition: Home - Self-Care Reason For Visit: SINUS TACHYCARDIA Discharge Diagnosis: Asthma exacerbation, sore throat, Neftali-Velasquez virus infection Condition on Discharge: Good Activity: Resume your previous activity Non-emergency contact: Primary Care Provider Call non-emergency contact if: you have any medication questions and your symptoms worsen Follow-up/Referrals: Salome Pickard PA-C [Primary Care Provider] - 12/09/22 5:00 pm (Date & Time 12/09/2022 5:00 PM Provider Salome iPckard PA-C Department [facility] ) Diet: Regular Addtl Attending Provider Instructions: Try to avoid stimulants that causes asthma exacerbation as advised Take your medications as advised Keep appointment with your healthcare provider Pending Studies at Discharge: No Stand-Alone Forms: My [employer], Smoking Cessation Medications and DC Order Prescriptions: New albuterol sulfate [Ventolin HFA] 90 mcg/actuation Hfa Aerosol Inhaler 2 puff inhalation Q6H PRN (Reason: shortness of breath or wheezing) Qty: 8.5 0RF fluticasone propionate [Flovent HFA] 110 mcg/actuation HFA aerosol inhaler 1 inh inhalation Q12H Qty: 12 0RF Rx Instructions: administer with spacer Continued cetirizine 10 mg tablet 10 mg PO DAILY PRN (Reason: allergy symptoms) Qty: 90 3RF fluticasone propionate 50 mcg/actuation spray,suspension 2 spray INTRANASAL QAM bupropion HCl 150 mg tablet extended release 24 hr 150 mg PO QAM albuterol sulfate [Ventolin HFA] 90 mcg/actuation HFA aerosol inhaler 2 puff inhalation Q4 PRN (Reason: shortness of breath or wheezing) Discontinued amoxicillin-pot clavulanate 875-125 mg tablet 1 tab PO BID Qty: 20 0RF Discharge Orders: Discharge Order (Routine); Ordered 12/07/22 Ordered By: Hetal Parsons Admission Data Admit Date/Time: 12/01/22 16:16 Attending Provider: Hetal Parsons Admit Provider: Hetal Parsons Primary Care Provider: Salome Pickard Other Providers: Hetal Parsons Other Interventions: Discharge Summary Assessment (RN) Last Done: 12/07/22 12:53
--- NOTE | 2022-12-02 14:11 | Hospitalist Progress Note ---
Date of Service December 02, 2022 Assessment & Plan (1) Asthma exacerbation: Plan: Asthma exacerbation likely viral and could have secondary bacterial infection Patient is a 27-year-old male with PMH asthma, depression presented to ER with complaint of sore throat, URI symptoms and shortness of breath x 1 week Recent negative outpatient group A strep test, negative Monospot, negative anaplasmosis, negative Lyme. Negative GC/CT, Negative HIV, Negative Hepatitis C antibody In ER afebrile, initially tachycardic in the 150s, initially tachypneic. No hypoxia. No leukocytosis. Negative influenza, RSV, SARS-CoV-2 PCR today Negative respiratory bio fire panel on 11/29/2022 In ER received neb treatment, IV Solu-Medrol, 2 L NSS Improvement after neb treatment with decreased tachypnea and decreased wheezing CTA chest: Nondiagnostic evaluation of the pulmonary arterial tree secondary to contrast bolus timing. Trace pericardial and pleural effusions. Splenomegaly. Patient not hypoxic however is cardiac and tachypneic. Will add D-dimer. D-dimer was elevated to more than 700 and a repeat CTA has been negative for any pulmonary embolism He has been feeling much better today with minimal or no wheezing We will continue current management and likely discharge tomorrow Possible bacterial superinfection Likely viral URI causing asthma exacerbation. possible viral pharyngitis. Repeat [place] -negative. No signs of tonsillar abscess at this time. Continue to monitor. Will start antibiotics. Sinus tachycardia possible secondary to dehydration Has been started on azithromycin ESR-39 and C-reactive protein more than 7 (2) Acute pharyngitis: Plan: Likely viral Azithromycin for possible bacterial super infection Has been feeling better (3) Dehydration: (4) Effusion, pericardium: Plan: CTA chest: Trace pericardial and pleural effusions HS troponin negative Echo did not show any significant pleural effusions and EF is normal No cardiac symptoms (5) Hypokalemia: Plan: K: 3.2 Magnesium level pending Replace and monitor-has been normalized (6) Depression: Plan: Continue bupropion DVT Prophylaxis Lovenox SQ Full Code as per discussion with pt Follows with Salome Pickard PA-C for routine care Likely discharge tomorrow Admission and Anticipated Discharge Date Admission Date: December 01, 2022 Subjective 12/02/2022 The patient was seen and examined in medical telemetry unit He has been feeling much better and has been ambulating in the hallway and in the room without any significant wheezing and no shortness of breath Cough is better, no fever and or chills Neck swelling has improved Review of Systems Review of Systems: All systems reviewed and are unremarkable except as noted below Physical Exam Physical Exam: Sitting on the bed without any acute distress but anxious Constitutional: + ill appearing and average body habitus Eyes: PERRL, conjunctivae normal, anicteric sclerae ENMT: external ear and nose normal, oropharynx normal Neck: trachea midline, no thyromegaly Respiratory: no respiratory distress Auscultation: + diminished lung sounds and + wheezes (Minimal wheezing at the bases) Cardiovascular: Rate/Rhythm: regular rate and regular rhythm; not tachycardic Heart Sounds: normal S1 and normal S2; no murmur Extremities: no edema Gastrointestinal (Abdomen): Inspection/Auscultation: normal bowel sounds; abdomen not distended Percussion/Palpation: abdomen soft; abdomen nontender Musculoskeletal: No acute arthritis involving any of the joint Neurologic: normal touch/pain/proprioception and moves all extremities; no focal motor deficits Psychiatric: A+Ox3, euthymic affect Lymphatic: Cervical lymphadenopathy with tonsillar enlargement Results & Data Results & Data Vital Signs (Past 12 Hours) Vital Signs Temp Pulse Pulse Resp BP Pulse Ox O2 Del Method 12/02/22 07:00 98 H 12/02/22 08:00 Room Air 12/02/22 11:06 37.2 C 91 H 17 135/86 91 Room Air 12/02/22 08:06 36.6 C 98 H 18 126/83 96 Room Air 12/02/22 02:47 37.2 C 116 H 16 142/92 H 99 Room Air Laboratory Results Short CBC 12/02/22 Range/Units 05:31 WBC 5.81 (4.8-10.8) K/ul Hgb 14.1 (14.0-18.0) g/dl Hct 40.3 L (42.0-52.0) % Plt Count 227 (130-400) K/uL BMP 12/01/22 12/02/22 13:45 05:31 Sodium 137 137 Potassium 3.2 L 4.1 D Chloride 103 106 Carbon Dioxide 24 23 BUN 12 7 Creatinine 0.89 0.70 Glucose 106 H 140 H Calcium 8.9 9.1 Liver Function 12/01/22 Range/Units 13:45 Total Bilirubin 0.7 (0.2-1.0) mg/dl AST 11 L (13-39) U/L ALT 22 (7-52) U/L Alkaline Phosphatase 85 (34-104) U/L Albumin 4.4 (3.4-5.0) gm/dl Medications Administered Current Inpatient Medications Acetaminophen (Acetaminophen 325 Mg Tab) 650 mg PO Q4H PRN PRN Reason: Pain or Fever Stop: 12/31/22 18:39 Last Admin: 12/02/22 13:22 Dose: 650 mg Bupropion HCl (Bupropion Xl 150 Mg Tabcr) 150 mg PO HS [facility] Stop: 12/31/22 20:59 Last Admin: 12/01/22 20:28 Dose: 150 mg Enoxaparin Sodium (Enoxaparin Inj 40 Mg/0.4 Ml Syr) 40 mg SQ Q24H [facility] Stop: 12/31/22 20:59 Last Admin: 12/01/22 19:52 Dose: Not Given Fluticasone Propionate (Fluticasone Propionate Na Spr 16 Gm Btl) 2 sprays [facility] Stop: 01/01/23 08:59 Last Admin: 12/02/22 09:09 Dose: 2 sprays Azithromycin 500 mg/ Dextrose 255 mls @ 125 mls/hr IV Q24H [facility] Stop: 12/09/22 17:59 Promethazine HCl 12.5 mg/ (Sodium Chloride) 50.5 mls @ 202 mls/hr IV Q6H PRN PRN Reason: Nausea And Vomiting Stop: 12/31/22 18:39 Methylprednisolone 40 mg/ (Syringe) 0.64 mls @ 1.5 mls/min IV TID [facility] Stop: 12/31/22 20:59 Last Admin: 12/02/22 09:10 Dose: 1.5 mls/min Ipratropium [place] (Ipratropium [place] Neb Soln 0.02% 2.5 Ml Vial) 0.5 mg INH Q6R PRN PRN Reason: Wheezing Stop: 12/31/22 18:59 Levalbuterol HCl (Levalbuterol 1.25 Mg/3 Ml Neb) 1.25 mg NEB Q6R PRN PRN Reason: Wheezing Stop: 12/31/22 18:59 Polyethylene Glycol (Polyethylene (Miralax) 17 Gm Pack) 17 gm PO DAILY PRN PRN Reason: Constipation Stop: 12/31/22 18:39 (2) Acute pharyngitis Pharyngitis/tonsillitis etiology: unspecified etiology Qualified Code(s): J02.9 - Acute pharyngitis, unspecified
[2022-12-02] MEDS: LEVALBUTEROL 1.25 MG/3 ML NEB NEB PRN (15:01)
[2022-12-02] MEDS: IPRATROPIUM BROMIDE NEB SOLN 0.02% 2.5 ML VIAL INH PRN (15:01)
--- NOTE | 2022-12-02 16:42 | Electrocardiogram Report ---
Test Reason : Blood Pressure : / mmHG Vent. Rate : 096 BPM Atrial Rate : 096 BPM P-R Int : 138 ms QRS Dur : 094 ms QT Int : 360 ms P-R-T Axes : 055 024 028 degrees QTc Int : 454 ms Normal sinus rhythm Normal ECG When compared with ECG of 01-DEC-2022 13:42, No significant change was found Confirmed by Ger Stewart ([id number]) on 12/02/2022 4:42:08 PM Referred By: Komal Jang Confirmed By:Ger Stewart
[2022-12-02] MEDS: AZITHROMYCIN 500 MG in DEXTROSE 5% 250 ML IV SCH (18:12)
[2022-12-02] MEDS: ENOXAPARIN INJ 40 MG/0.4 ML SYR SQ SCH (20:01)
[2022-12-02] MEDS: buPROPion XL 150 MG TABCR PO SCH (20:02)
[2022-12-03] MEDS: LEVALBUTEROL 1.25 MG/3 ML NEB NEB PRN (00:20)
[2022-12-03] MEDS: IPRATROPIUM BROMIDE NEB SOLN 0.02% 2.5 ML VIAL INH PRN (00:20)
[2022-12-03] MEDS: ACETAMINOPHEN 325 MG TAB PO PRN ×3 (04:35→20:07)
[2022-12-03] MEDS: methylPREDNISolone 40 MG in SYRINGE 0 ML IV SCH ×3 (09:32→20:08)
[2022-12-03] MEDS: FLUTICASONE PROPIONATE NA SPR 16 GM BTL NAE SCH (10:57)
[2022-12-03 11:55] LABS: EBV Nuclear Ag Antibody <18.00 U/mL; EBV Virus Capsid Ag IgG Ab <18.00 U/mL; Epstein Barr Virus Early Ag Ab <9.00 U/mL
--- NOTE | 2022-12-03 16:22 | Hospitalist Progress Note ---
Date of Service December 03, 2022 Assessment & Plan (1) Asthma exacerbation: Plan: Asthma exacerbation likely viral and could have secondary bacterial infection Patient is a 27-year-old male with PMH asthma, depression presented to ER with complaint of sore throat, URI symptoms and shortness of breath x 1 week Recent negative outpatient group A strep test, negative Monospot, negative anaplasmosis, negative Lyme. Negative GC/CT, Negative HIV, Negative Hepatitis C antibody In ER afebrile, initially tachycardic in the 150s, initially tachypneic. No hypoxia. No leukocytosis. Negative influenza, RSV, SARS-CoV-2 PCR today Negative respiratory bio fire panel on 11/29/2022 In ER received neb treatment, IV Solu-Medrol, 2 L NSS Improvement after neb treatment with decreased tachypnea and decreased wheezing CTA chest: Nondiagnostic evaluation of the pulmonary arterial tree secondary to contrast bolus timing. Trace pericardial and pleural effusions. Splenomegaly. Patient not hypoxic however is cardiac and tachypneic. Will add D-dimer. D-dimer was elevated to more than 700 and a repeat CTA has been negative for any pulmonary embolism He has been feeling much better today with minimal or no wheezing We will continue current management and likely discharge tomorrow Has been having tachycardia Advised to drink more fluid We will use less of nebulized bronchodilator, use more of inhalers Possible bacterial superinfection Likely viral URI causing asthma exacerbation. possible viral pharyngitis. Repeat [place] -negative. No signs of tonsillar abscess at this time. Continue to monitor. Will start antibiotics. Sinus tachycardia possible secondary to dehydration Has been started on azithromycin ESR-39 and C-reactive protein more than 7 No fever and no chills (2) Acute pharyngitis: Plan: Likely viral Azithromycin for possible bacterial super infection Has been feeling better Still complains to have some throat pain (3) Dehydration: Plan: Advised to drink more fluids (4) Effusion, pericardium: Plan: CTA chest: Trace pericardial and pleural effusions HS troponin negative Echo did not show any significant pleural effusions and EF is normal No cardiac symptoms (5) Hypokalemia: Plan: K: 3.2 Magnesium level pending Replace and monitor-has been normalized (6) Depression: Plan: Continue bupropion DVT Prophylaxis Lovenox SQ Full Code as per discussion with pt Follows with Salome Neeraj PA-C for routine care Likely discharge tomorrow Admission and Anticipated Discharge Date Admission Date: December 01, 2022 Subjective 12/02/2022 The patient was seen and examined in medical telemetry unit He has been feeling much better and has been ambulating in the hallway and in the room without any significant wheezing and no shortness of breath Cough is better, no fever and or chills Neck swelling has improved 12/03/2022 The patient was seen and examined in medical telemetry unit He has been feeling much better but remains tachycardic Denies any wheezing and or shortness of breath He has been ambulating in the hallway without any difficulties, my Review of Systems Review of Systems: All systems reviewed and are unremarkable except as noted below Physical Exam Physical Exam: Sitting on the bed without any acute distress but anxious Constitutional: + ill appearing and average body habitus Eyes: PERRL, conjunctivae normal, anicteric sclerae ENMT: external ear and nose normal, oropharynx normal Neck: trachea midline, no thyromegaly Respiratory: no respiratory distress Auscultation: + diminished lung sounds and + wheezes (Minimal wheezing at the bases) Cardiovascular: Rate/Rhythm: regular rate and regular rhythm; not tachycardic Heart Sounds: normal S1 and normal S2; no murmur Extremities: no edema Gastrointestinal (Abdomen): Inspection/Auscultation: normal bowel sounds; abdomen not distended Percussion/Palpation: abdomen soft; abdomen nontender Neurologic: normal touch/pain/proprioception and moves all extremities; no focal motor deficits Psychiatric: A+Ox3, euthymic affect Results & Data Results & Data Vital Signs (Past 12 Hours) Vital Signs Temp Pulse Pulse Resp BP Pulse Ox O2 Del Method 12/03/22 14:57 36.7 C 122 H 16 134/79 96 Room Air 12/03/22 11:42 37.1 C 113 H 16 136/81 97 Room Air 12/03/22 07:00 86 12/03/22 08:00 Room Air 12/03/22 07:22 36.7 C 108 H 16 140/92 97 Room Air Medications Administered Current Inpatient Medications Acetaminophen (Acetaminophen 325 Mg Tab) 650 mg PO Q4H PRN PRN Reason: Pain or Fever Stop: 12/31/22 18:39 Last Admin: 12/03/22 14:44 Dose: 650 mg Bupropion HCl (Bupropion Xl 150 Mg Tabcr) 150 mg PO HS [facility] Stop: 12/31/22 20:59 Last Admin: 12/02/22 20:02 Dose: 150 mg Enoxaparin Sodium (Enoxaparin Inj 40 Mg/0.4 Ml Syr) 40 mg SQ Q24H [facility] Stop: 12/31/22 20:59 Last Admin: 12/02/22 20:01 Dose: Not Given Fluticasone Propionate (Fluticasone Propionate Na Spr 16 Gm Btl) 2 sprays [facility] Stop: 01/01/23 08:59 Last Admin: 12/03/22 10:57 Dose: 2 sprays Azithromycin 500 mg/ Dextrose 255 mls @ 125 mls/hr IV Q24H [facility] Stop: 12/09/22 17:59 Last Infusion: 12/02/22 20:20 Dose: Infused Promethazine HCl 12.5 mg/ (Sodium Chloride) 50.5 mls @ 202 mls/hr IV Q6H PRN PRN Reason: Nausea And Vomiting Stop: 12/31/22 18:39 Methylprednisolone 40 mg/ (Syringe) 0.64 mls @ 1.5 mls/min IV TID [facility] Stop: 12/31/22 20:59 Last Admin: 12/03/22 14:44 Dose: 1.5 mls/min Ipratropium [place] (Ipratropium [place] Neb Soln 0.02% 2.5 Ml Vial) 0.5 mg INH Q6R PRN PRN Reason: Wheezing Stop: 12/31/22 18:59 Last Admin: 12/03/22 00:20 Dose: 0.5 mg Levalbuterol HCl (Levalbuterol 1.25 Mg/3 Ml Neb) 1.25 mg NEB Q6R PRN PRN Reason: Wheezing Stop: 12/31/22 18:59 Last Admin: 12/03/22 00:20 Dose: 1.25 mg Polyethylene Glycol (Polyethylene (Miralax) 17 Gm Pack) 17 gm PO DAILY PRN PRN Reason: Constipation Stop: 12/31/22 18:39 (2) Acute pharyngitis Pharyngitis/tonsillitis etiology: unspecified etiology Qualified Code(s): J02.9 - Acute pharyngitis, unspecified
[2022-12-03] MEDS: AZITHROMYCIN 500 MG in DEXTROSE 5% 250 ML IV SCH (18:26)
[2022-12-03] MEDS: ENOXAPARIN INJ 40 MG/0.4 ML SYR SQ SCH (20:07)
[2022-12-03] MEDS: buPROPion XL 150 MG TABCR PO SCH (20:07)
[2022-12-03] MEDS ORDERED: COUGH DROP (SUGAR FREE) LOZ 24 LOZ/1 BOX BUCCAL PRN (20:40)
[2022-12-03] MEDS ORDERED: MAGNESIUM SULFATE / D5W 1 GM/100 ML BAG IV SCH (20:45)
[2022-12-03] MEDS ORDERED: SODIUM CHLORIDE 0.9% 1,000 ML IV ONE (21:00)
[2022-12-03 21:26] LABS: Basophils # (auto) 0.03 K/uL (0.00-0.20); Basophils % (auto) 0.2 %; Hematocrit (blood only) 45.3 % (42.0-52.0); Hemoglobin 15.4 g/dl (14.0-18.0); Immature Granulocytes # (auto) 0.32 K/uL (0.01-0.20); Immature Granulocytes % (auto) 1.9 %; Lymphocytes # (auto) 1.26 K/uL (1.20-3.40); Lymphocytes % (auto) 7.5 %; Mean Corpuscular Hemoglobin 27.4 pg (25.0-34.0); Mean Corpuscular Volume 80.5 fL (80.0-100.0); Monocytes # (auto) 0.71 K/uL (0.11-0.59); Monocytes % (auto) 4.2 %; Neutrophils # (auto) 14.47 K/uL (1.40-6.50); Neutrophils % (auto) 86.2 %; Platelet Count 318 K/uL (130-400); RDW Coefficient of Variation 12.8 % (11.5-14.5); Red Blood Count 5.63 M/uL (4.70-6.10); White Blood Count 16.79 K/ul (4.8-10.8)
[2022-12-03 21:30] LABS: BUN Creatinine Ratio 15.1 (10-20); Calcium 9.1 mg/dl (8.6-10.3); Creatinine Clr Calc Pharmacy 151.3 ml/min; Est GFR (African American) 139.7 ml/min; Est GFR (Non-African American) 120.5 ml/min; Magnesium 2.4 mg/dl (1.7-2.4); Potassium 4.3 mmol/L (3.5-5.1)
[2022-12-03] MEDS: guaiFENesin 600 MG TABCR PO SCH (22:16)
[2022-12-04] MEDS ORDERED: KETOROLAC TROMETHAMINE 15 MG/ML VIAL IV ONE (01:55)
--- NOTE | 2022-12-04 02:52 | CT Scan Report ---
CT SCAN OF THE BRAIN WITHOUT IV CONTRAST CLINICAL HISTORY: Headache. COMPARISON STUDY: No priors. TECHNIQUE: Unenhanced axial CT scan of the brain is performed from the vertex to the skull base. A d ose lowering technique was utilized adhering to the principles of ALARA. CT DOSE: 625.8 mGy.cm FINDINGS: Brain parenchyma: The brain parenchyma is normal in appearance. There is no hemorrhage, mass effect, or evidence of acute territorial ischemia by CT criteria. Zuniga-white matter differentiation is preser arelis. No extra-axial fluid collection is seen. Ventricles, sulci, cisterns: Normal in configuration. Intracranial vasculature: The visualized intracranial vasculature at the skull base is normal in appe arance. Calvarium: Unremarkable. Sinuses and mastoids: There is subtotal opacification of the ethmoid sinuses. Moderate mucosal thicke reece is seen in the frontal sinuses. The mastoid air cells are well pneumatized. Orbits: The bony orbits are grossly intact. IMPRESSION: 1. No acute intracranial abnormality. 2. Paranasal sinus disease as above. ACT 112: Negative or not required by law. Electronically signed by: Mark Kennedy M.D. 12/04/2022 2:50 AM
[2022-12-04 06:11] LABS: Basophils # (auto) 0.03 K/uL (0.00-0.20); Basophils % (auto) 0.2 %; Hematocrit (blood only) 44.6 % (42.0-52.0); Immature Granulocytes # (auto) 0.29 K/uL (0.01-0.20); Immature Granulocytes % (auto) 1.8 %; Lymphocytes # (auto) 1.78 K/uL (1.20-3.40); Lymphocytes % (auto) 11.1 %; Mean Corpuscular Hemoglobin 27.5 pg (25.0-34.0); Mean Corpuscular Hgb Conc 33.6 g/dL (32.0-36.0); Mean Corpuscular Volume 81.7 fL (80.0-100.0); Mean Platelet Volume 8.7 fL (9.4-12.4); Monocytes # (auto) 0.92 K/uL (0.11-0.59); Monocytes % (auto) 5.8 %; Neutrophils # (auto) 12.95 K/uL (1.40-6.50); Neutrophils % (auto) 81.1 %; Platelet Count 295 K/uL (130-400); RDW Coefficient of Variation 12.8 % (11.5-14.5); RDW Standard Deviation 37.7 fL (36.4-46.3); Red Blood Count 5.46 M/uL (4.70-6.10); White Blood Count 15.97 K/ul (4.8-10.8)
[2022-12-04 06:17] LABS: BUN Creatinine Ratio 20.8 (10-20); Calcium 9.2 mg/dl (8.6-10.3); Creatinine Clr Calc Pharmacy 168.4 ml/min; Est GFR (African American) 146.2 ml/min; Est GFR (Non-African American) 126.1 ml/min
[2022-12-04] MEDS: ACETAMINOPHEN 325 MG TAB PO PRN (07:50)
[2022-12-04] MEDS: FLUTICASONE PROPIONATE NA SPR 16 GM BTL NAE SCH (09:31)
[2022-12-04] MEDS: methylPREDNISolone 40 MG in SYRINGE 0 ML IV SCH ×2 (09:32→14:39)
[2022-12-04] MEDS: guaiFENesin 600 MG TABCR PO SCH ×2 (09:32→20:34)
[2022-12-04] MEDS: SODIUM CHLORIDE 0.9% 1,000 ML IV SCH ×2 (09:33→17:57)
[2022-12-04] MEDS: LEVALBUTEROL 1.25 MG/3 ML NEB NEB PRN ×2 (16:31)
[2022-12-04] MEDS: IPRATROPIUM BROMIDE NEB SOLN 0.02% 2.5 ML VIAL INH PRN ×2 (16:31)
--- NOTE | 2022-12-04 16:35 | Hospitalist Progress Note ---
Date of Service December 04, 2022 Assessment & Plan (1) Asthma exacerbation: Plan: Asthma exacerbation likely viral and could have secondary bacterial infection Patient is a 27-year-old male with PMH asthma, depression presented to ER with complaint of sore throat, URI symptoms and shortness of breath x 1 week Recent negative outpatient group A strep test, negative Monospot, negative anaplasmosis, negative Lyme. Negative GC/CT, Negative HIV, Negative Hepatitis C antibody In ER afebrile, initially tachycardic in the 150s, initially tachypneic. No hypoxia. No leukocytosis. Negative influenza, RSV, SARS-CoV-2 PCR today Negative respiratory bio fire panel on 11/29/2022 In ER received neb treatment, IV Solu-Medrol, 2 L NSS Improvement after neb treatment with decreased tachypnea and decreased wheezing CTA chest: Nondiagnostic evaluation of the pulmonary arterial tree secondary to contrast bolus timing. Trace pericardial and pleural effusions. Splenomegaly. Patient not hypoxic however is cardiac and tachypneic. Will add D-dimer. D-dimer was elevated to more than 700 and a repeat CTA has been negative for any pulmonary embolism He has been feeling much better today with minimal or no wheezing We will continue current management and likely discharge tomorrow Has been having tachycardia Advised to drink more fluid We will use less of nebulized bronchodilator, use more of inhalers Noted to have Neftali-Velasquez virus infection and having neck pain and dysphagia Will start prednisone from tomorrow Has had more headache last night Fever and tachycardia Likely secondary to viral infection CT scan of the head remained unremarkable We will try more intravenous fluid and observe him overnight Possible bacterial superinfection Likely viral URI causing asthma exacerbation. possible viral pharyngitis. Repeat [place] -negative. No signs of tonsillar abscess at this time. Continue to monitor. Will start antibiotics. Sinus tachycardia possible secondary to dehydration Has been started on azithromycin ESR-39 and C-reactive protein more than 7 No fever and no chills (2) Acute pharyngitis: Plan: Likely viral Azithromycin for possible bacterial super infection Has been feeling better Still complains to have some throat pain Secondary to Neftali-Velasquez virus infection (3) Dehydration: Plan: Advised to drink more fluids (4) Effusion, pericardium: Plan: CTA chest: Trace pericardial and pleural effusions HS troponin negative Echo did not show any significant pleural effusions and EF is normal No cardiac symptoms (5) Hypokalemia: Plan: K: 3.2 Magnesium level pending Replace and monitor-has been normalized (6) Depression: Plan: Continue bupropion DVT Prophylaxis Lovenox SQ Full Code as per discussion with pt Follows with Salome Pickard PA-C for routine care Likely discharge tomorrow Admission and Anticipated Discharge Date Admission Date: December 01, 2022 Subjective 12/02/2022 The patient was seen and examined in medical telemetry unit He has been feeling much better and has been ambulating in the hallway and in the room without any significant wheezing and no shortness of breath Cough is better, no fever and or chills Neck swelling has improved 12/03/2022 The patient was seen and examined in medical telemetry unit He has been feeling much better but remains tachycardic Denies any wheezing and or shortness of breath He has been ambulating in the hallway without any difficulties, my 12/04/2022 The patient was seen and examined in medical telemetry unit He has been worse today with tachycardia and pain involving the lower neck and throat Wheezing is better and shortness of breath is better Not yet ready to be discharged Review of Systems Review of Systems: All systems reviewed and are unremarkable except as noted below Physical Exam Physical Exam: Sitting on the bed without any acute distress but anxious Constitutional: + ill appearing and average body habitus Eyes: PERRL, conjunctivae normal, anicteric sclerae ENMT: external ear and nose normal, oropharynx normal Neck: trachea midline, no thyromegaly trachea midline and + neck tender (Bilaterally lower neck with cervical adenopathy) Respiratory: no respiratory distress Auscultation: + diminished lung sounds and + wheezes (Minimal wheezing at the bases) Cardiovascular: Rate/Rhythm: regular rate and regular rhythm; not tachycardic Heart Sounds: normal S1 and normal S2; no murmur Extremities: no edema Gastrointestinal (Abdomen): Inspection/Auscultation: normal bowel sounds; abdomen not distended Percussion/Palpation: abdomen soft; abdomen nontender Neurologic: normal touch/pain/proprioception and moves all extremities; no focal motor deficits Psychiatric: A+Ox3, euthymic affect Results & Data Results & Data Vital Signs (Past 12 Hours) Vital Signs Temp Pulse Pulse Resp BP Pulse Ox O2 Del Method 12/04/22 16:00 90 12/04/22 15:43 37.2 C 107 H 16 116/68 97 Room Air 12/04/22 11:52 37.4 C 111 H 16 113/70 93 Room Air 12/04/22 08:00 96 H 12/04/22 08:00 38.1 C H 119 H 16 133/77 95 Room Air 12/04/22 08:40 37.8 C H Laboratory Results Short CBC 12/03/22 12/04/22 Range/Units 20:54 05:38 WBC 16.79 H 15.97 H (4.8-10.8) K/ul Hgb 15.4 15.0 (14.0-18.0) g/dl Hct 45.3 44.6 (42.0-52.0) % Plt Count 318 295 (130-400) K/uL BMP 12/03/22 12/04/22 20:54 05:38 Sodium 135 L 136 Potassium 4.3 4.0 Chloride 103 101 Carbon Dioxide 24 27 BUN 13 16 Creatinine 0.86 0.77 Glucose 141 H 126 H Calcium 9.1 9.2 Medications Administered Current Inpatient Medications Acetaminophen (Acetaminophen 325 Mg Tab) 650 mg PO Q4H PRN PRN Reason: Pain or Fever Stop: 12/31/22 18:39 Last Admin: 12/04/22 07:50 Dose: 650 mg Bupropion HCl (Bupropion Xl 150 Mg Tabcr) 150 mg PO HS [facility] Stop: 12/31/22 20:59 Last Admin: 12/03/22 20:07 Dose: 150 mg Enoxaparin Sodium (Enoxaparin Inj 40 Mg/0.4 Ml Syr) 40 mg SQ Q24H [facility] Stop: 12/31/22 20:59 Last Admin: 12/03/22 20:07 Dose: Not Given Fluticasone Propionate (Fluticasone Propionate Na Spr 16 Gm Btl) 2 sprays [facility] Stop: 01/01/23 08:59 Last Admin: 12/04/22 09:31 Dose: 2 sprays Guaifenesin (Guaifenesin 600 Mg Tabcr) 600 mg PO Q12 [facility] Stop: 01/02/23 20:59 Last Admin: 12/04/22 09:32 Dose: 600 mg Azithromycin 500 mg/ Dextrose 255 mls @ 125 mls/hr IV Q24H [facility] Stop: 12/09/22 17:59 Last Infusion: 12/03/22 20:53 Dose: Infused Promethazine HCl 12.5 mg/ (Sodium Chloride) 50.5 mls @ 202 mls/hr IV Q6H PRN PRN Reason: Nausea And Vomiting Stop: 12/31/22 18:39 Last Infusion: 12/04/22 09:37 Dose: Infused Methylprednisolone 40 mg/ (Syringe) 0.64 mls @ 1.5 mls/min IV TID [facility] Stop: 12/31/22 20:59 Last Admin: 12/04/22 14:39 Dose: 1.5 mls/min Sodium Chloride (Nss) 1,000 mls @ 125 mls/hr IV .Q8H [facility] Stop: 12/05/22 08:29 Last Admin: 12/04/22 09:33 Dose: 125 mls/hr Ipratropium [place] (Ipratropium [place] Neb Soln 0.02% 2.5 Ml Vial) 0.5 mg INH Q6R PRN PRN Reason: Wheezing Stop: 12/31/22 18:59 Last Admin: 12/04/22 16:31 Dose: 0.5 mg Levalbuterol HCl (Levalbuterol 1.25 Mg/3 Ml Neb) 1.25 mg NEB Q6R PRN PRN Reason: Wheezing Stop: 12/31/22 18:59 Last Admin: 12/04/22 16:31 Dose: 1.25 mg Menthol (Cough Drop (Sugar Free) Bandar 24 Bandar/1 Box) 1 bandar [place] Q1H PRN PRN Reason: Sore Throat Stop: 01/02/23 20:39 Polyethylene Glycol (Polyethylene (Miralax) 17 Gm Pack) 17 gm PO DAILY PRN PRN Reason: Constipation Stop: 12/31/22 18:39 (2) Acute pharyngitis Pharyngitis/tonsillitis etiology: unspecified etiology Qualified Code(s): J02.9 - Acute pharyngitis, unspecified
[2022-12-04] MEDS: AZITHROMYCIN 500 MG in DEXTROSE 5% 250 ML IV SCH (17:58)
[2022-12-04] MEDS: IBUPROFEN 600 MG TAB PO PRN (18:39)
[2022-12-04] MEDS: ENOXAPARIN INJ 40 MG/0.4 ML SYR SQ SCH (20:33)
[2022-12-04] MEDS: buPROPion XL 150 MG TABCR PO SCH (20:34)
[2022-12-05] MEDS: SODIUM CHLORIDE 0.9% 1,000 ML IV SCH (02:59)
[2022-12-05 05:26] LABS: Hematocrit (blood only) 41.7 % (42.0-52.0); Hemoglobin 14.1 g/dl (14.0-18.0); Mean Corpuscular Hemoglobin 27.5 pg (25.0-34.0); Mean Corpuscular Hgb Conc 33.8 g/dL (32.0-36.0); Mean Corpuscular Volume 81.4 fL (80.0-100.0); Mean Platelet Volume 8.5 fL (9.4-12.4); Platelet Count 250 K/uL (130-400); RDW Coefficient of Variation 12.5 % (11.5-14.5); RDW Standard Deviation 37.1 fL (36.4-46.3); Red Blood Count 5.12 M/uL (4.70-6.10); White Blood Count 10.92 K/ul (4.8-10.8)
[2022-12-05] MEDS: IPRATROPIUM BROMIDE NEB SOLN 0.02% 2.5 ML VIAL INH PRN (05:39)
[2022-12-05 05:43] LABS: Albumin Globulin Ratio 1.2 (0.9-2); Albumin Level 3.8 gm/dl (3.4-5.0); BUN Creatinine Ratio 19.5 (10-20); Bilirubin,Total 0.6 mg/dl (0.2-1.0); Calcium 8.6 mg/dl (8.6-10.3); Creatinine Clr Calc Pharmacy 158.2 ml/min; Est GFR (African American) 142.4 ml/min; Est GFR (Non-African American) 122.9 ml/min; Globulin 3.2 gm/dl (2.5-4.0)
[2022-12-05 05:57] LABS: Basophils # (auto) 0.03 K/uL (0.00-0.20); Basophils % (auto) 0.3 %; Immature Granulocytes # (auto) 0.27 K/uL (0.01-0.20); Immature Granulocytes % (auto) 2.5 %; Lymphocytes # (auto) 2.21 K/uL (1.20-3.40); Lymphocytes % (auto) 20.2 %; Monocytes # (auto) 1.03 K/uL (0.11-0.59); Monocytes % (auto) 9.4 %; Neutrophils # (auto) 7.38 K/uL (1.40-6.50); Neutrophils % (auto) 67.6 %; RBC Morphology Unremarkable
--- NOTE | 2022-12-05 07:18 | Electrocardiogram Report ---
Test Reason : Blood Pressure : / mmHG Vent. Rate : 110 BPM Atrial Rate : 110 BPM P-R Int : 124 ms QRS Dur : 088 ms QT Int : 332 ms P-R-T Axes : 050 061 039 degrees QTc Int : 449 ms Sinus tachycardia Otherwise normal ECG When compared with ECG of 02-DEC-2022 05:50, No significant change was found Confirmed by Ger Stewart ([id number]) on 12/05/2022 7:17:42 AM Referred By: Komal Jang Confirmed By:Ger Stewart
[2022-12-05] MEDS: IBUPROFEN 600 MG TAB PO PRN ×2 (07:23→18:46)
[2022-12-05] MEDS: guaiFENesin 600 MG TABCR PO SCH ×2 (07:24→19:27)
[2022-12-05] MEDS: FLUTICASONE PROPIONATE NA SPR 16 GM BTL NAE SCH (07:24)
[2022-12-05] MEDS: predniSONE 20 MG TAB PO SCH (08:52)
[2022-12-05] MEDS ORDERED: ALBUTEROL HFA 8 GM INHALER INH PRN (10:46)
--- NOTE | 2022-12-05 14:15 | Hospitalist Progress Note ---
Date of Service December 05, 2022 Assessment & Plan (1) Asthma exacerbation: Plan: Asthma exacerbation likely viral and could have secondary bacterial infection Patient is a 27-year-old male with PMH asthma, depression presented to ER with complaint of sore throat, URI symptoms and shortness of breath x 1 week Recent negative outpatient group A strep test, negative Monospot, negative anaplasmosis, negative Lyme. Negative GC/CT, Negative HIV, Negative Hepatitis C antibody In ER afebrile, initially tachycardic in the 150s, initially tachypneic. No hypoxia. No leukocytosis. Negative influenza, RSV, SARS-CoV-2 PCR today Negative respiratory bio fire panel on 11/29/2022 In ER received neb treatment, IV Solu-Medrol, 2 L NSS Improvement after neb treatment with decreased tachypnea and decreased wheezing CTA chest: Nondiagnostic evaluation of the pulmonary arterial tree secondary to contrast bolus timing. Trace pericardial and pleural effusions. Splenomegaly. Patient not hypoxic however is cardiac and tachypneic. Will add D-dimer. D-dimer was elevated to more than 700 and a repeat CTA has been negative for any pulmonary embolism He has been feeling much better today with minimal or no wheezing We will continue current management and likely discharge tomorrow Has been having tachycardia Advised to drink more fluid We will use less of nebulized bronchodilator, use more of inhalers Noted to have Neftali-Velasquez virus infection and having neck pain and dysphagia Remained tachycardic early this morning without any wheezing and/or shortness of breath Atrovent has been discontinued Has had more headache last night Fever and tachycardia Likely secondary to viral infection CT scan of the head remained unremarkable We will try more intravenous fluid and observe him overnight Still has minimal headache which is controlled with ibuprofen taken as needed Possible bacterial superinfection Likely viral URI causing asthma exacerbation. possible viral pharyngitis. Repeat [place] -negative. No signs of tonsillar abscess at this time. Continue to monitor. Will start antibiotics. Sinus tachycardia possible secondary to dehydration Has been started on azithromycin ESR-39 and C-reactive protein more than 7 No fever and no chills (2) Acute pharyngitis: Plan: Likely viral Azithromycin for possible bacterial super infection Has been feeling better Still complains to have some throat pain Secondary to Neftali-Velasquez virus infection Denies any problem with swallowing (3) Dehydration: Plan: Advised to drink more fluids (4) Effusion, pericardium: Plan: CTA chest: Trace pericardial and pleural effusions HS troponin negative Echo did not show any significant pleural effusions and EF is normal No cardiac symptoms (5) Hypokalemia: Plan: K: 3.2 Magnesium level pending Replace and monitor-has been normalized (6) Depression: Plan: Continue bupropion DVT Prophylaxis Lovenox SQ Full Code as per discussion with pt Follows with Salome Pickard PA-C for routine care Likely discharge in a day or 2 Admission and Anticipated Discharge Date Admission Date: December 01, 2022 Subjective 12/02/2022 The patient was seen and examined in medical telemetry unit He has been feeling much better and has been ambulating in the hallway and in the room without any significant wheezing and no shortness of breath Cough is better, no fever and or chills Neck swelling has improved 12/03/2022 The patient was seen and examined in medical telemetry unit He has been feeling much better but remains tachycardic Denies any wheezing and or shortness of breath He has been ambulating in the hallway without any difficulties, my 12/04/2022 The patient was seen and examined in medical telemetry unit He has been worse today with tachycardia and pain involving the lower neck and throat Wheezing is better and shortness of breath is better Not yet ready to be discharged 12/05/2022 The patient was seen and examined in medical telemetry unit He has been most better but is still complaints of headache without any associated symptoms No wheezing and/or shortness of breath at rest Remains tachycardic as of this morning Review of Systems Review of Systems: All systems reviewed and are unremarkable except as noted below Physical Exam Physical Exam: Sitting on the bed without any acute distress but anxious Constitutional: + ill appearing and average body habitus Eyes: PERRL, conjunctivae normal, anicteric sclerae ENMT: external ear and nose normal, oropharynx normal Neck: trachea midline, no thyromegaly trachea midline and + neck tender (Bilaterally lower neck with cervical adenopathy) Respiratory: no respiratory distress Auscultation: + diminished lung sounds and + wheezes (Minimal wheezing at the bases) Cardiovascular: Rate/Rhythm: regular rate and regular rhythm; not tachycardic Heart Sounds: normal S1 and normal S2; no murmur Extremities: no edema Gastrointestinal (Abdomen): Inspection/Auscultation: normal bowel sounds; abdomen not distended Percussion/Palpation: abdomen soft; abdomen nontender Neurologic: normal touch/pain/proprioception and moves all extremities; no focal motor deficits Psychiatric: A+Ox3, euthymic affect Results & Data Results & Data Vital Signs (Past 12 Hours) Vital Signs Temp Pulse Pulse Resp BP BP Pulse Ox 12/05/22 08:00 12/05/22 11:20 36.6 C 76 16 113/70 98 12/05/22 08:00 106 H 12/05/22 07:39 37.0 C 108 H 18 148/105 H 150/102 H 97 12/05/22 04:18 37 C 100 H 16 125/82 96 12/05/22 04:28 O2 Del Method 12/05/22 08:00 Room Air 12/05/22 11:20 Room Air 12/05/22 08:00 12/05/22 07:39 Room Air 12/05/22 04:18 Room Air 12/05/22 04:28 Room Air Laboratory Results Short CBC 12/05/22 Range/Units 04:38 WBC 10.92 H (4.8-10.8) K/ul Hgb 14.1 (14.0-18.0) g/dl Hct 41.7 L (42.0-52.0) % Plt Count 250 (130-400) K/uL BMP 12/05/22 04:38 Sodium 138 Potassium 4.0 Chloride 104 Carbon Dioxide 27 BUN 16 Creatinine 0.82 Glucose 98 Calcium 8.6 Liver Function 12/05/22 Range/Units 04:38 Total Bilirubin 0.6 (0.2-1.0) mg/dl AST 6 L (13-39) U/L ALT 21 (7-52) U/L Alkaline Phosphatase 66 (34-104) U/L Albumin 3.8 (3.4-5.0) gm/dl Medications Administered Current Inpatient Medications Acetaminophen (Acetaminophen 325 Mg Tab) 650 mg PO Q4H PRN PRN Reason: Pain or Fever Stop: 12/31/22 18:39 Last Admin: 12/04/22 07:50 Dose: 650 mg Albuterol (Albuterol Hfa 8 Gm Inhaler) 2 puffs INH Q6H PRN PRN Reason: Shortness Of Breath Or Wheezing Stop: 01/04/23 10:59 Bupropion HCl (Bupropion Xl 150 Mg Tabcr) 150 mg PO HS [facility] Stop: 12/31/22 20:59 Last Admin: 12/04/22 20:34 Dose: 150 mg Enoxaparin Sodium (Enoxaparin Inj 40 Mg/0.4 Ml Syr) 40 mg SQ Q24H [facility] Stop: 12/31/22 20:59 Last Admin: 12/04/22 20:33 Dose: 40 mg Fluticasone Propionate (Fluticasone Propionate Na Spr 16 Gm Btl) 2 sprays JURGEN QAM [facility] Stop: 01/01/23 08:59 Last Admin: 12/05/22 07:24 Dose: 2 sprays Guaifenesin (Guaifenesin 600 Mg Tabcr) 600 mg PO Q12 [facility] Stop: 01/02/23 20:59 Last Admin: 12/05/22 07:24 Dose: 600 mg Azithromycin 500 mg/ Dextrose 255 mls @ 125 mls/hr IV Q24H [facility] Stop: 12/09/22 17:59 Last Infusion: 12/04/22 20:01 Dose: Infused Promethazine HCl 12.5 mg/ (Sodium Chloride) 50.5 mls @ 202 mls/hr IV Q6H PRN PRN Reason: Nausea And Vomiting Stop: 12/31/22 18:39 Last Infusion: 12/04/22 09:37 Dose: Infused Ibuprofen (Ibuprofen 600 Mg Tab) 600 mg PO Q6H PRN PRN Reason: Headache Stop: 01/03/23 18:02 Last Admin: 12/05/22 07:23 Dose: 600 mg Levalbuterol HCl (Levalbuterol 1.25 Mg/3 Ml Neb) 1.25 mg NEB Q6R PRN PRN Reason: Wheezing Stop: 12/31/22 18:59 Last Admin: 12/04/22 16:31 Dose: 1.25 mg Menthol (Cough Drop (Sugar Free) Bandar 24 Bandar/1 Box) 1 bandar BUCCAL Q1H PRN PRN Reason: Sore Throat Stop: 01/02/23 20:39 Polyethylene Glycol (Polyethylene (Miralax) 17 Gm Pack) 17 gm PO DAILY PRN PRN Reason: Constipation Stop: 12/31/22 18:39 Prednisone (Prednisone 20 Mg Tab) 40 mg PO DAILY [facility] Stop: 01/04/23 08:59 Last Admin: 12/05/22 08:52 Dose: 40 mg (2) Acute pharyngitis Pharyngitis/tonsillitis etiology: unspecified etiology Qualified Code(s): J02.9 - Acute pharyngitis, unspecified
[2022-12-05] MEDS: AZITHROMYCIN 500 MG in DEXTROSE 5% 250 ML IV SCH (18:43)
[2022-12-05] MEDS: buPROPion XL 150 MG TABCR PO SCH (19:27)
[2022-12-05] MEDS: ENOXAPARIN INJ 40 MG/0.4 ML SYR SQ SCH (19:27)
[2022-12-05] MEDS: LEVALBUTEROL 1.25 MG/3 ML NEB NEB PRN (19:30)
[2022-12-06] MEDS: IBUPROFEN 600 MG TAB PO PRN ×2 (03:48→21:16)
[2022-12-06] MEDS: predniSONE 20 MG TAB PO SCH (09:04)
[2022-12-06] MEDS: FLUTICASONE PROPIONATE NA SPR 16 GM BTL NAE SCH (09:04)
[2022-12-06] MEDS: guaiFENesin 600 MG TABCR PO SCH ×2 (09:04→21:17)
--- NOTE | 2022-12-06 16:35 | Hospitalist Progress Note ---
Date of Service December 06, 2022 Assessment & Plan (1) Asthma exacerbation: Plan: Asthma exacerbation likely viral and could have secondary bacterial infection Patient is a 27-year-old male with PMH asthma, depression presented to ER with complaint of sore throat, URI symptoms and shortness of breath x 1 week Recent negative outpatient group A strep test, negative Monospot, negative anaplasmosis, negative Lyme. Negative GC/CT, Negative HIV, Negative Hepatitis C antibody In ER afebrile, initially tachycardic in the 150s, initially tachypneic. No hypoxia. No leukocytosis. Negative influenza, RSV, SARS-CoV-2 PCR today Negative respiratory bio fire panel on 11/29/2022 In ER received neb treatment, IV Solu-Medrol, 2 L NSS Improvement after neb treatment with decreased tachypnea and decreased wheezing CTA chest: Nondiagnostic evaluation of the pulmonary arterial tree secondary to contrast bolus timing. Trace pericardial and pleural effusions. Splenomegaly. Patient not hypoxic however is cardiac and tachypneic. Will add D-dimer. D-dimer was elevated to more than 700 and a repeat CTA has been negative for any pulmonary embolism He has been feeling much better today with minimal or no wheezing We will continue current management and likely discharge tomorrow Has been having tachycardia Advised to drink more fluid We will use less of nebulized bronchodilator, use more of inhalers Noted to have Neftali-Velasquez virus infection and having neck pain and dysphagia Remained tachycardic early this morning without any wheezing and/or shortness of breath Atrovent has been discontinued Clinically much better and the repeat chest x-ray did not show any pneumonia He will be discharged home tomorrow on albuterol as needed and Flovent regularly. He will finish the course of steroid Has had more headache last night Fever and tachycardia Likely secondary to viral infection CT scan of the head remained unremarkable We will try more intravenous fluid and observe him overnight Still has minimal headache which is controlled with ibuprofen taken as needed No more headache and neck pain is better Possible bacterial superinfection Likely viral URI causing asthma exacerbation. possible viral pharyngitis. Repeat [place] -negative. No signs of tonsillar abscess at this time. Continue to monitor. Will start antibiotics. Sinus tachycardia possible secondary to dehydration Has been started on azithromycin ESR-39 and C-reactive protein more than 7 No fever and no chills-CXR is negative (2) Acute pharyngitis: Plan: Likely viral Azithromycin for possible bacterial super infection Has been feeling better Still complains to have some throat pain Secondary to Neftali-Velasqeuz virus infection Denies any problem with swallowing (3) Dehydration: Plan: Advised to drink more fluids (4) Effusion, pericardium: Plan: CTA chest: Trace pericardial and pleural effusions HS troponin negative Echo did not show any significant pleural effusions and EF is normal No cardiac symptoms (5) Hypokalemia: Plan: K: 3.2 Magnesium level pending Replace and monitor-has been normalized (6) Depression: Plan: Continue bupropion DVT Prophylaxis Lovenox SQ Full Code as per discussion with pt Follows with Salome Pickard PA-C for routine care Likely discharge in a day or 2 Admission and Anticipated Discharge Date Admission Date: December 01, 2022 Subjective 12/02/2022 The patient was seen and examined in medical telemetry unit He has been feeling much better and has been ambulating in the hallway and in the room without any significant wheezing and no shortness of breath Cough is better, no fever and or chills Neck swelling has improved 12/03/2022 The patient was seen and examined in medical telemetry unit He has been feeling much better but remains tachycardic Denies any wheezing and or shortness of breath He has been ambulating in the hallway without any difficulties, my 12/04/2022 The patient was seen and examined in medical telemetry unit He has been worse today with tachycardia and pain involving the lower neck and throat Wheezing is better and shortness of breath is better Not yet ready to be discharged 12/05/2022 The patient was seen and examined in medical telemetry unit He has been most better but is still complaints of headache without any associated symptoms No wheezing and/or shortness of breath at rest Remains tachycardic as of this morning 12/06/2022 The patient was seen and examined in medical telemetry unit He has been feeling much better but he still has shortness of breath with exertion and remains tachycardic Still has cough but no wheezing Review of Systems Review of Systems: All systems reviewed and are unremarkable except as noted below Physical Exam Physical Exam: Sitting on the bed without any acute distress but anxious Constitutional: + ill appearing and average body habitus Eyes: PERRL, conjunctivae normal, anicteric sclerae ENMT: external ear and nose normal, oropharynx normal Neck: trachea midline, no thyromegaly trachea midline and + neck tender (Bilaterally lower neck with cervical adenopathy) Respiratory: no respiratory distress Auscultation: + diminished lung sounds and + wheezes (Minimal wheezing at the bases) Cardiovascular: Rate/Rhythm: regular rate and regular rhythm; not tachycardic Heart Sounds: normal S1 and normal S2; no murmur Extremities: no edema Gastrointestinal (Abdomen): Inspection/Auscultation: normal bowel sounds; abdomen not distended Percussion/Palpation: abdomen soft; abdomen nontender Musculoskeletal: No acute arthritis involving any of the joint Neurologic: normal touch/pain/proprioception and moves all extremities; no focal motor deficits Psychiatric: A+Ox3, euthymic affect Results & Data Results & Data Vital Signs (Past 12 Hours) Vital Signs Temp Pulse Pulse Resp BP Pulse Ox O2 Del Method 12/06/22 15:55 36.8 C 91 H 16 119/75 97 Room Air 12/06/22 10:52 36.7 C 97 H 16 124/75 96 Room Air 12/06/22 10:46 89 12/06/22 08:10 36.6 C 83 16 115/75 97 Room Air Medications Administered Current Inpatient Medications Acetaminophen (Acetaminophen 325 Mg Tab) 650 mg PO Q4H PRN PRN Reason: Pain or Fever Stop: 12/31/22 18:39 Last Admin: 12/04/22 07:50 Dose: 650 mg Albuterol (Albuterol Hfa 8 Gm Inhaler) 2 puffs INH Q6H PRN PRN Reason: Shortness Of Breath Or Wheezing Stop: 01/04/23 10:59 Bupropion HCl (Bupropion Xl 150 Mg Tabcr) 150 mg PO HS [facility] Stop: 12/31/22 20:59 Last Admin: 12/05/22 19:27 Dose: 150 mg Enoxaparin Sodium (Enoxaparin Inj 40 Mg/0.4 Ml Syr) 40 mg SQ Q24H [facility] Stop: 12/31/22 20:59 Last Admin: 12/05/22 19:27 Dose: 40 mg Fluticasone Propionate (Fluticasone Propionate Na Spr 16 Gm Btl) 2 sprays JURGEN QAM [facility] Stop: 01/01/23 08:59 Last Admin: 12/06/22 09:04 Dose: 2 sprays Fluticasone Propionate (Fluticasone Hfa 220 Mcg Inhaler) 1 puffs INH DAILY [facility] Stop: 01/05/23 16:44 Guaifenesin (Guaifenesin 600 Mg Tabcr) 600 mg PO Q12 [facility] Stop: 01/02/23 20:59 Last Admin: 12/06/22 09:04 Dose: 600 mg Azithromycin 500 mg/ Dextrose 255 mls @ 125 mls/hr IV Q24H [facility] Stop: 12/09/22 17:59 Last Infusion: 12/05/22 21:20 Dose: Infused Promethazine HCl 12.5 mg/ (Sodium Chloride) 50.5 mls @ 202 mls/hr IV Q6H PRN PRN Reason: Nausea And Vomiting Stop: 12/31/22 18:39 Last Infusion: 12/04/22 09:37 Dose: Infused Ibuprofen (Ibuprofen 600 Mg Tab) 600 mg PO Q6H PRN PRN Reason: Headache Stop: 01/03/23 18:02 Last Admin: 12/06/22 03:48 Dose: 600 mg Levalbuterol HCl (Levalbuterol 1.25 Mg/3 Ml Neb) 1.25 mg NEB Q6R PRN PRN Reason: Wheezing Stop: 12/31/22 18:59 Last Admin: 12/05/22 19:30 Dose: 1.25 mg Menthol (Cough Drop (Sugar Free) Bandar 24 Bandar/1 Box) 1 bandar BUCCAL Q1H PRN PRN Reason: Sore Throat Stop: 01/02/23 20:39 Polyethylene Glycol (Polyethylene (Miralax) 17 Gm Pack) 17 gm PO DAILY PRN PRN Reason: Constipation Stop: 12/31/22 18:39 Prednisone (Prednisone 20 Mg Tab) 40 mg PO DAILY [facility] Stop: 01/04/23 08:59 Last Admin: 12/06/22 09:04 Dose: 40 mg (2) Acute pharyngitis Pharyngitis/tonsillitis etiology: unspecified etiology Qualified Code(s): J02.9 - Acute pharyngitis, unspecified
--- NOTE | 2022-12-06 17:24 | XRay Report ---
XR chest 2V PA/lateral CLINICAL HISTORY: Pneumonia TECHNIQUE: 2 views of the chest were obtained. Comparison: Comparison is made to chest radiograph 12/01/2022 FINDINGS: No lines and tubes are seen. The cardiomediastinal silhouette is normal. The lungs are clear. No evid ence of pleural effusion or pneumothorax. IMPRESSION: No acute abnormalities and in particular no radiographic evidence of pneumonia. ACT 112: Negative or not required by law. Electronically signed by: Oskar Reyes M.D. 12/06/2022 5:23 PM
[2022-12-06] MEDS: FLUTICASONE FUROATE 200MCG 14 PUFFS/INHALER INH SCH (17:56)
[2022-12-06] MEDS: AZITHROMYCIN 500 MG in DEXTROSE 5% 250 ML IV SCH (17:57)
[2022-12-06] MEDS: ENOXAPARIN INJ 40 MG/0.4 ML SYR SQ SCH (21:17)
[2022-12-06] MEDS: buPROPion XL 150 MG TABCR PO SCH (21:17)
[2022-12-07] MEDS: FLUTICASONE FUROATE 200MCG 14 PUFFS/INHALER INH SCH (08:11)
[2022-12-07] MEDS: guaiFENesin 600 MG TABCR PO SCH (08:12)
[2022-12-07] MEDS: predniSONE 20 MG TAB PO SCH (08:12)
[2022-12-07] MEDS: FLUTICASONE PROPIONATE NA SPR 16 GM BTL NAE SCH (08:12)
--- NOTE | 2022-12-07 12:29 | Hospitalist Progress Note ---
Date of Service December 07, 2022 Assessment & Plan (1) Asthma exacerbation: Plan: Asthma exacerbation likely viral and could have secondary bacterial infection Patient is a 27-year-old male with PMH asthma, depression presented to ER with complaint of sore throat, URI symptoms and shortness of breath x 1 week Recent negative outpatient group A strep test, negative Monospot, negative anaplasmosis, negative Lyme. Negative GC/CT, Negative HIV, Negative Hepatitis C antibody In ER afebrile, initially tachycardic in the 150s, initially tachypneic. No hypoxia. No leukocytosis. Negative influenza, RSV, SARS-CoV-2 PCR today Negative respiratory bio fire panel on 11/29/2022 In ER received neb treatment, IV Solu-Medrol, 2 L NSS Improvement after neb treatment with decreased tachypnea and decreased wheezing CTA chest: Nondiagnostic evaluation of the pulmonary arterial tree secondary to contrast bolus timing. Trace pericardial and pleural effusions. Splenomegaly. Patient not hypoxic however is cardiac and tachypneic. Will add D-dimer. D-dimer was elevated to more than 700 and a repeat CTA has been negative for any pulmonary embolism He has been feeling much better today with minimal or no wheezing We will continue current management and likely discharge tomorrow Has been having tachycardia Advised to drink more fluid We will use less of nebulized bronchodilator, use more of inhalers Noted to have Neftali-Velasquez virus infection and having neck pain and dysphagia Remained tachycardic early this morning without any wheezing and/or shortness of breath Atrovent has been discontinued Clinically much better and the repeat chest x-ray did not show any pneumonia He will be discharged home tomorrow on albuterol as needed and Flovent regularly. He will finish the course of steroid Clinically much better and he will be discharged home this afternoon He will continue with his medications as advised Has had more headache last night Fever and tachycardia Likely secondary to viral infection CT scan of the head remained unremarkable We will try more intravenous fluid and observe him overnight Still has minimal headache which is controlled with ibuprofen taken as needed No more headache and neck pain is better-headache is resolved Possible bacterial superinfection Likely viral URI causing asthma exacerbation. possible viral pharyngitis. Repeat [facility] -negative. No signs of tonsillar abscess at this time. Continue to monitor. Will start antibiotics. Sinus tachycardia possible secondary to dehydration Has been started on azithromycin ESR-39 and C-reactive protein more than 7 No fever and no chills-CXR is negative Does not need any more antibiotic (2) Acute pharyngitis: Plan: Likely viral Azithromycin for possible bacterial super infection Has been feeling better Still complains to have some throat pain Secondary to Neftali-Velasquez virus infection Denies any problem with swallowing (3) Dehydration: Plan: Advised to drink more fluids (4) Effusion, pericardium: Plan: CTA chest: Trace pericardial and pleural effusions HS troponin negative Echo did not show any significant pleural effusions and EF is normal No cardiac symptoms (5) Hypokalemia: Plan: K: 3.2 Magnesium level pending Replace and monitor-has been normalized (6) Depression: Plan: Continue bupropion DVT Prophylaxis Lovenox SQ Full Code as per discussion with pt Follows with Salome Pickard PA-C for routine care Discharged home this afternoon Admission and Anticipated Discharge Date Admission Date: December 01, 2022 Subjective 12/02/2022 The patient was seen and examined in medical telemetry unit He has been feeling much better and has been ambulating in the hallway and in the room without any significant wheezing and no shortness of breath Cough is better, no fever and or chills Neck swelling has improved 12/03/2022 The patient was seen and examined in medical telemetry unit He has been feeling much better but remains tachycardic Denies any wheezing and or shortness of breath He has been ambulating in the hallway without any difficulties, my 12/04/2022 The patient was seen and examined in medical telemetry unit He has been worse today with tachycardia and pain involving the lower neck and throat Wheezing is better and shortness of breath is better Not yet ready to be discharged 12/05/2022 The patient was seen and examined in medical telemetry unit He has been most better but is still complaints of headache without any associated symptoms No wheezing and/or shortness of breath at rest Remains tachycardic as of this morning 12/06/2022 The patient was seen and examined in medical telemetry unit He has been feeling much better but he still has shortness of breath with exertion and remains tachycardic Still has cough but no wheezing 12/07/2022 The patient was seen and examined in medical telemetry unit He has been feeling much better today and denies any symptoms whatsoever His breathing is controlled and there is no wheezing and tachycardia is reasonably controlled too Denies any neck pain or any problem with swallowing Review of Systems Review of Systems: All systems reviewed and are unremarkable except as noted below Physical Exam Physical Exam: Sitting on the bed without any acute distress but anxious Constitutional: + ill appearing and average body habitus Eyes: PERRL, conjunctivae normal, anicteric sclerae ENMT: external ear and nose normal, oropharynx normal Neck: trachea midline, no thyromegaly trachea midline and + neck tender (Bilaterally lower neck with cervical adenopathy) Respiratory: no respiratory distress Auscultation: lungs clear to auscultation bilaterally; no crackles and no wheezes (Minimal wheezing at the bases) Cardiovascular: Rate/Rhythm: regular rate and regular rhythm; not tachycardic Heart Sounds: normal S1 and normal S2; no murmur Extremities: no edema Gastrointestinal (Abdomen): Inspection/Auscultation: normal bowel sounds; abdomen not distended Percussion/Palpation: abdomen soft; abdomen nontender Neurologic: normal touch/pain/proprioception and moves all extremities; no focal motor deficits Psychiatric: A+Ox3, euthymic affect Lymphatic: no cervical or axillary lymphadenopathy Results & Data Results & Data Vital Signs (Past 12 Hours) Vital Signs Temp Pulse Resp BP Pulse Ox O2 Del Method 12/07/22 11:48 36.8 C 103 H 18 124/91 97 Room Air 12/07/22 08:29 36.9 C 105 H 19 128/85 98 Room Air 12/07/22 04:39 36.5 C 97 H 18 122/74 99 Room Air 12/07/22 01:00 102 H 12/07/22 00:31 36.8 C 119 H 18 148/90 H 97 Room Air Medications Administered Current Inpatient Medications Acetaminophen (Acetaminophen 325 Mg Tab) 650 mg PO Q4H PRN PRN Reason: Pain or Fever Stop: 12/31/22 18:39 Last Admin: 12/04/22 07:50 Dose: 650 mg Albuterol (Albuterol Hfa 8 Gm Inhaler) 2 puffs INH Q6H PRN PRN Reason: Shortness Of Breath Or Wheezing Stop: 01/04/23 10:59 Last Admin: 12/06/22 22:02 Dose: 2 puffs Azithromycin (Azithromycin 250 Mg Tab) 500 mg PO NOW ONE Stop: 12/07/22 18:01 Bupropion HCl (Bupropion Xl 150 Mg Tabcr) 150 mg PO HS [facility] Stop: 12/31/22 20:59 Last Admin: 12/06/22 21:17 Dose: 150 mg Enoxaparin Sodium (Enoxaparin Inj 40 Mg/0.4 Ml Syr) 40 mg SQ Q24H [facility] Stop: 12/31/22 20:59 Last Admin: 12/06/22 21:17 Dose: 40 mg Fluticasone Furoate (Fluticasone Furoate 200mcg 14 Puffs/Inhaler) 1 puffs INH DAILY [facility] Stop: 01/05/23 16:44 Last Admin: 12/07/22 08:11 Dose: 1 puffs Fluticasone Propionate (Fluticasone Propionate Na Spr 16 Gm Btl) 2 sprays JURGEN QAM [facility] Stop: 01/01/23 08:59 Last Admin: 12/07/22 08:12 Dose: 2 sprays Guaifenesin (Guaifenesin 600 Mg Tabcr) 600 mg PO Q12 [facility] Stop: 01/02/23 20:59 Last Admin: 12/07/22 08:12 Dose: 600 mg Promethazine HCl 12.5 mg/ (Sodium Chloride) 50.5 mls @ 202 mls/hr IV Q6H PRN PRN Reason: Nausea And Vomiting Stop: 12/31/22 18:39 Last Infusion: 12/04/22 09:37 Dose: Infused Ibuprofen (Ibuprofen 600 Mg Tab) 600 mg PO Q6H PRN PRN Reason: Headache Stop: 01/03/23 18:02 Last Admin: 12/06/22 21:16 Dose: 600 mg Levalbuterol HCl (Levalbuterol 1.25 Mg/3 Ml Neb) 1.25 mg NEB Q6R PRN PRN Reason: Wheezing Stop: 12/31/22 18:59 Last Admin: 12/05/22 19:30 Dose: 1.25 mg Menthol (Cough Drop (Sugar Free) Bandar 24 Bandar/1 Box) 1 bandar BUCCAL Q1H PRN PRN Reason: Sore Throat Stop: 01/02/23 20:39 Polyethylene Glycol (Polyethylene (Miralax) 17 Gm Pack) 17 gm PO DAILY PRN PRN Reason: Constipation Stop: 12/31/22 18:39 Prednisone (Prednisone 20 Mg Tab) 40 mg PO DAILY [facility] Stop: 01/04/23 08:59 Last Admin: 12/07/22 08:12 Dose: 40 mg (2) Acute pharyngitis Pharyngitis/tonsillitis etiology: unspecified etiology Qualified Code(s): J02.9 - Acute pharyngitis, unspecified
[2022-12-07] MEDS ORDERED: AZITHROMYCIN 250 MG TAB PO ONE (18:00)
== END 2022-12-07 13:00 | disposition home or self-care (01) | DRG 202 ==
LOC: ED 12:48 → 2W 16:16